=== PATIENT | female | born 1990 | race Caucasian/White ===

== ENCOUNTER 2019-07-02 08:53 | Outpatient (CLI) | payer OTHER, SELFPAY ==
--- NOTE | 2019-07-04 12:35 | WPDHOLTEREM ---
Holter/Event Monitor Holter/Event Monitor Date of procedure: 07/02/19 Procedure Type: 24 hour holter monitor Indications: Tachycardia Conclusion: 1. 24 hour holter monitor on 07/02/19. 2. Underlying rhythm is sinus rhythm. HR range 62-150 bpm; average HR 87 bpm. 3. No premature supraventricular complex. No supraventricular tachycardia. 4. No premature ventricular complex. No ventricular tachycardia. 5. No sinoatrial or atrioventricular blocks. No significant pauses greater than 2 seconds. 6. Patient reports symptoms of chest pressure/tightness and heart racing which demonstrate sinus rhythm, HR range 103-132 bpm.
== END 2019-07-02 08:54 | disposition home or self-care (01) ==
PROVIDERS: PCP Family Medicine; Visit Provider Advanced Practice Midwife
DX: R00.0 Tachycardia, unspecified (principal)
CPT/HCPCS: 93225; 93226

== ENCOUNTER 2019-07-17 10:23 | Outpatient (CLI) | payer OTHER, SELFPAY ==
[2019-07-17 11:25] LABS: Basophils Percent Auto 0.1 % (0.2-1.2); Eosinophils Absolute Auto 0.1 K/mm3 (0-0.3); Eosinophils Percent Auto 0.9 % (0-4.4); Hematocrit 33.7 % (37.0-47.0); Hemoglobin 11.3 g/dL (12.0-15.0); Immature Granulocyte Absolute 0.06 K/mm3 (0.00-0.031); Immature Granulocyte Percent A 0.6 % (0-0.5); Lymphocytes Absolute Auto 1.72 K/mm3 (0.9-3.2); Mean Corpuscular HGB Conc 33.5 g/dl (32-36); Mean Corpuscular Hemoglobin 29.7 pg (26-34); Mean Corpuscular Volume 88.7 fl (80-100); Mean Platelet Volume 10.6 fl (7.4-10.4); Monocytes Absolute Auto 0.7 K/mm3 (0.1-0.6); Monocytes Percent Auto 6.8 % (2.6-8.5); Neutrophils Absolute Auto 7.5 K/mm3 (1.3-6.7); Neutrophils Percent Auto 74.6 % (45.5-73.1); Platelet Count Result 152 k/mm3 (150-375); Red Cell Distribution Width 12.7 % (11.5-14.5); White Blood Count 10.1 K/mm3 (4.5-10.0)
[2019-07-17 11:30] VITALS: BP 115/79; PULSE 97
[2019-07-17 11:37] LABS: Alanine Aminotransferase 10 U/L (4-35); Albumin Level 3.5 g/dL (3.5-5.1); Alkaline Phosphatase 83 U/L (38-126); Aspartate Amino Transferase 19 U/L (14-36); Bilirubin,Total 0.2 mg/dL (0.2-1.3); Blood Urea Nitrogen 9 mg/dL (7-17); Calcium 8.6 mg/dL (8.4-10.2); Carbon Dioxide 25 mmol/L (22-30); Chloride 104 mmol/L (98-107); Creatinine Urine 24.3 mg/dL; Estimated Glomerular Filt Rate > 60; Glucose 77 mg/dL (65-105); Potassium 3.8 mmol/L (3.4-5.0); Sodium 136 mmol/L (137-145); Total Protein Urine Random 12 mg/dL; Uric Acid 2.9 mg/dL (2.5-7.5)
[2019-07-17 11:45] VITALS: BP 109/72; PULSE 88
[2019-07-17 12:00] VITALS: BP 105/69; PULSE 84
--- NOTE | 2019-07-17 12:05 | PC.NURSE ---
Bg Zavala CNM on unit. Lab results and BPs given. Informed of 1 variable deceleration noted, but other quintero reactive at 30 weeks. Uterine irritability noted, but no contractions seen on monitor. Uterine irritability noted on tracing. Pt states that she has low abdominal pressure that comes and goes. May D/C home. Follow up at regularly scheduled appt.
[2019-07-17 13:23] LABS: Appearance Urine Clear (Clear); Bilirubin Urine Negative (Negative); Blood Urine Negative (Negative); Color Urine Yellow (Yellow); Glucose Urine UA Negative (Negative); Ketones Urine Negative (Negative); Leukocyte Esterase Ur Negative LEU/UL (NEGATIVE); Nitrate Urine Negative (Negative); Protein Urine Negative (Negative); Specific Grav Ur 1.015 (1.001-1.035); Urobilinogen Urine 0.2 mg/dL (<2.0)
[2019-07-17 13:29] LABS: Add Urine Microscopic? YES; Bacteria Urine Trace /hpf; RBC Urine 0-2 /hpf (0-2); Squamous Epithelial Cell Urine Many /hpf (Few); WBC Urine 0-3 /hpf (0-3)
== END 2019-07-17 12:10 | disposition home or self-care (01) ==
LOC: ANHOBOP 10:37 → ANHOBPP 10:38
PROVIDERS: Advanced Practice Midwife; PCP Family Medicine; Visit Provider Obstetrics & Gynecology
DX: O13.9 Gestational [pregnancy-induced] hypertension without significant proteinuria, unspecified trimester (principal)
CPT/HCPCS: 36415; 59025; 80053; 81001; 82570; 84156; 84550; 85025; 87086; 99199

== ENCOUNTER 2019-08-22 19:51 | Observation (INO) | payer OTHER, SELFPAY ==
[2019-08-22 20:16] VITALS: BP 117/83; PULSE 87
[2019-08-22 20:30] VITALS: BP 114/81; PULSE 83
[2019-08-22 20:45] VITALS: BP 112/78; PULSE 94
--- NOTE | 2019-08-22 22:06 | OBADM ---
This patient, Fariha White, admitted to the OB room OB Post 116 for observation. Patient/family oriented to hospital policies and general routines including ID bracelet, bed and alarms, visiting hours, pain management, procedures, bathroom and other care routines, personal items, smoking policy, room service/diet, and visiting hours. Patient/Family are encouraged to report perceived risks to care and to ask questions if they do not understand what they are told or what they should do.
--- NOTE | 2019-08-26 07:39 | PM.OBTRLD ---
OB - Triage/Final Diagnosis Final Diagnosis (1) False labor: Code(s): O47.9 - False labor, unspecified Status: Acute
== END 2019-08-22 21:39 | disposition home or self-care (01) ==
PROVIDERS: Admitting Provider Obstetrics & Gynecology; PCP Family Medicine; Visit Provider Obstetrics & Gynecology
DX: O47.03 False labor before 37 completed weeks of gestation, third trimester (principal); Z3A.35 35 weeks gestation of pregnancy
CPT/HCPCS: G0378; G0379

== ENCOUNTER 2019-08-27 15:37 | Emergency (ER) | payer OTHER, SELFPAY ==
--- NOTE | ~2019-08-27 | XR_ITS ---
EXAMINATION: XR chest 1V INDICATION: Shortness of breath, chest pressure TECHNIQUE: PA view of the chest is obtained. COMPARISON: None available FINDINGS: There is minimal airspace opacity of the left lung base. No pleural effusion or pneumothora x is identified. The cardiomediastinal silhouette is normal. The visualized osseous structures are un remarkable. IMPRESSION: 1. Minimal left basilar airspace opacity, consistent with atelectasis versus pneumonia. Reviewed, dictated and finalized at location A. IMPRESSION: 1. Minimal left basilar airspace opacity, consistent with atelectasis versus pn eumonia.
--- NOTE | ~2019-08-27 | US_ITS ---
EXAMINATION: US venous doppler [facility] DATE: 08/27/2019 17:39 INDICATION: Bilateral lower limb cramping TECHNIQUE: Roth scale images without and with compression and Doppler images of the bilateral lower e xtremity veins were obtained. COMPARISON: None FINDINGS: The right common femoral vein, profunda femoral vein, femoral vein, popliteal vein, peroneal trunk, p osterior tibial veins, and greater saphenous vein are patent. The left common femoral vein, profunda femoral vein, femoral vein, popliteal vein, peroneal trunk, po sterior tibial veins, and greater saphenous vein are patent. IMPRESSION: 1. Patent bilateral lower extremity veins. No evidence of deep venous thrombosis. Reviewed, dictated and finalized at location A. IMPRESSION: 1. Patent bilateral lower extremity veins. No evidence of deep venous thrombosi s.
--- NOTE | 2019-08-27 15:46 | ECG_ITS ---
Measurements Intervals [place] Rate: 92 P: 112 RI: 146 QRS: 203 QRSD: 76 T: 140 QT: 350 QTc: 433 Interpretive Statements SINUS RHYTHM ARM LEADS REVERSED DELAYED PRECORDIAL R/S TRANSITION ATYPICAL ECG Electronically Signed On 08-27-2019 16:54:03 CDT by Trever Kennedy D.O.
[2019-08-27 15:49] VITALS: BP 145/93; PULSE 99; RESP 18; TEMP 36.6; O2SAT 100
[2019-08-27 16:08] LABS: Basophils Percent Auto 0.1 % (0.2-1.2); Eosinophils Absolute Auto 0.1 K/mm3 (0-0.3); Eosinophils Percent Auto 0.8 % (0-4.4); Hematocrit 35.5 % (37.0-47.0); Hemoglobin 11.9 g/dL (12.0-15.0); Immature Granulocyte Absolute 0.05 K/mm3 (0.00-0.031); Immature Granulocyte Percent A 0.5 % (0-0.5); Lymphocytes Absolute Auto 1.94 K/mm3 (0.9-3.2); Mean Corpuscular HGB Conc 33.5 g/dl (32-36); Mean Corpuscular Volume 89.4 fl (80-100); Mean Platelet Volume 11.6 fl (7.4-10.4); Monocytes Absolute Auto 0.8 K/mm3 (0.1-0.6); Monocytes Percent Auto 7.3 % (2.6-8.5); Neutrophils Absolute Auto 7.9 K/mm3 (1.3-6.7); Neutrophils Percent Auto 73.3 % (45.5-73.1); Platelet Count Result 151 k/mm3 (150-375); Red Blood Count 3.97 M/mm3 (4.2-5.4); Red Cell Distribution Width 13.3 % (11.5-14.5); White Blood Count 10.8 K/mm3 (4.5-10.0)
[2019-08-27 16:17] LABS: Partial Thromboplastin Time 23.6 SECONDS (22.3-36.8); Prothrombin Time 12.8 Seconds (11.1-14.7)
[2019-08-27 16:23] LABS: Blood Urea Nitrogen 6 mg/dL (7-17); Calcium 8.7 mg/dL (8.4-10.2); Carbon Dioxide 23 mmol/L (22-30); Chloride 104 mmol/L (98-107); Estimated CRCL calculation 175 ml/min; Estimated Glomerular Filt Rate > 60; Glucose 106 mg/dL (65-105); Sodium 134 mmol/L (137-145)
[2019-08-27 16:35] LABS: Troponin I < 0.012 ng/mL (0.000-0.034)
--- NOTE | 2019-08-27 16:54 | PC.NURSE ---
Pt states that she she is having contractions intermittently
--- NOTE | 2019-08-27 16:54 | PC.NURSE ---
Pt states that prior to ED arrival, patient was OBGYN office. Baby's HR was higher than normal, OBGYN sent patient in for evaluation for her and baby HR. Labor and delivery called for monitoring.
[2019-08-27 17:02] VITALS: BP 136/85; PULSE 85; RESP 14; O2SAT 100
--- NOTE | 2019-08-27 17:33 | ED.ARRPALP ---
HPI - Arrhythmia/Palpitations General Chief Complaint: Arrhythmia/Palpitations Stated Complaint: sob, chest pressure, racing heart, lightheadedness Time Seen by Provider: 08/27/19 17:01 History of Present Illness HPI narrative: Patient is a 20-year-old female who presents to the ER with multiple concerns. She reports intermittently over the last several months she has been having central chest pressure that will last for a few minutes. She is also having intermittent positional dizziness when she lays backwards. No spinning but feels like things are moving. This is accompanied by chronic sinus congestion from allergies for which she takes Flonase and an oral antihistamine daily. She denies any fever/sweats/chills. She is 36 weeks and will be induced that 38 weeks for her chronic hypertension. She reports she has been having some cramping in her legs recently but no swelling. She is been without any recent cough or fever. Patient also reports some shortness of breath, not necessarily exertional or positional, intermittent as well. Related Data Home Medications Medication Instructions Recorded Confirmed cetirizine 10 mg tablet 10 mg PO DAILY 05/29/19 labetalol 100 mg tablet 100 mg PO ONCE tablet 06/03/19 aspirin 08/27/19 zadcwrcwbw-pzwpjlmfquzca-qdtk cap 08/27/19 Allergies Allergy/AdvReac Type Severity Reaction Status Date / Time cefaclor Allergy Unknown Skin Verified 08/27/19 17:03 Reaction Review of Systems Review of Systems: All systems reviewed & are unremarkable except as noted in HPI and below Constitutional: Constitutional: Denies chills, Denies fever(s) and Denies weakness ENT: Reports dizziness, Reports nasal congestion and Denies sore throat Cardiovascular: Cardiovascular: Reports chest pain, Denies rapid heart rate and Denies radiating jaw, neck or arm pain Respiratory: Respiratory: Denies cough, Reports dyspnea and Denies wheezing Gastrointestinal: Gastrointestinal: Denies abdominal pain, Denies diarrhea, Denies nausea and Denies vomiting Musculoskeletal: Musculoskeletal: Denies back pain, Denies joint swelling and Reports muscle cramps PMFSH Past Medical History Medical History (Updated 08/27/19 @ 18:29 by Ethan Flores MD) Anxiety Deviated septum GERD (gastroesophageal reflux disease) Surgical History Surgical History (Updated 08/27/19 @ 17:41 by Ethan Flores MD) No pertinent past surgical history Family History Family History (Updated 08/25/17 @ 10:05 by DOCTOR UNKNOWN) Father Hypertension Other Family history of cardiovascular disease Family history of migraine headaches Social History Social History Smoking status: Never smoker Alcohol intake: current Exam Narrative: Exam Narrative: GENERAL: Well-appearing, well-nourished, and in no acute distress. HEAD: Normocephalic, atraumatic. ENT: Mucous membranes moist. TMs normal bilaterally. Ear canals free of cerumen. CHEST: Clear to auscultation. No respiratory distress. HEART: Regular rate and rhythm. Normal peripheral pulses. ABDOMEN: Soft, nontender, obviously gravid uterus with fundal height just below the rib cage. EXTREMITIES: Normal range of motion. No edema. SKIN: Warm, dry, no rash. NEURO: Alert and oriented x3. PSYCH: Mildly anxious with pressured speech. Course Course Emergency Course: Discussed with patient's OB Dr. Collado. Will start on azithromycin test for COVID. Patient aware of diagnosis and treatment plan. Vital Signs Vital signs: Vital Signs Temperature 97.9 F 08/27/19 15:49 Pulse Rate 99 08/27/19 15:49 Respiratory Rate 18 08/27/19 15:49 Blood Pressure 145/93 H 08/27/19 15:49 Pulse Oximetry 100 08/27/19 15:49 Temperature 97.9 F 08/27/19 15:49 Pulse Rate 85 08/27/19 17:02 Respiratory Rate 14 08/27/19 17:02 Blood Pressure 136/85 08/27/19 17:02 Pulse Oximetry 100 08/27/19 17:02 MDM - Arrhythmia/Palpitations Lab Da
--- NOTE | 2019-08-27 17:48 | PC.NURSE ---
Spoke with Dano isaacs CNM reagrding EFM tracing. Reactive NST, patient reports positive movement.
[2019-08-27 18:57] VITALS: BP 120/81; PULSE 88; RESP 19; O2SAT 100
[2019-08-27 19:05] LABS: Troponin I < 0.012 ng/mL (0.000-0.034)
[2019-08-28 19:19] LABS: SARS-CoV-2 RNA PCR Negative
== END 2019-08-27 18:58 | disposition home or self-care (01) ==
PROVIDERS: Emergency Provider Emergency Medicine; PCP Family Medicine
DX: O99.519 Diseases of the respiratory system complicating pregnancy, unspecified trimester (principal); J18.9 Pneumonia, unspecified organism; O99.343 Other mental disorders complicating pregnancy, third trimester; F41.9 Anxiety disorder, unspecified; O99.619 Diseases of the digestive system complicating pregnancy, unspecified trimester; K21.9 Gastro-esophageal reflux disease without esophagitis; Z20.828 Contact with and (suspected) exposure to other viral communicable diseases; Z3A.38 38 weeks gestation of pregnancy
CPT/HCPCS: 36415; 71045; 80048; 84484; 85025; 85610; 85730; 87635; 93005; 93970; 99284; C9803; U0003

== ENCOUNTER 2019-08-30 13:27 | Outpatient (RCR) | payer OTHER, SELFPAY ==
[2019-08-30 14:45] VITALS: BP 121/82; PULSE 81
== END 2019-09-09 07:28 | disposition home or self-care (01) ==
LOC: ANHOBOP 13:27
PROVIDERS: PCP Family Medicine; Visit Provider Obstetrics & Gynecology
DX: O10.913 Unspecified pre-existing hypertension complicating pregnancy, third trimester (principal); Z3A.37 37 weeks gestation of pregnancy
CPT/HCPCS: 59025

== ENCOUNTER 2019-09-06 05:03 | Inpatient (IN) | payer OTHER, SELFPAY ==
[2019-09-06] VITALS (170 sets, daily range): BP systolic 82–180; BP diastolic 20–105; PULSE 60–193; RESP 18; TEMP 36.7–37.7; O2SAT 95–100; BMI 28.6
--- NOTE | 2019-09-06 05:03 | LDADM ---
This patient, Fariha White, was admitted to Labor/Delivery/Recovery 103 on 09/06/19 at 05:03. Plans for labor, pain management and were discussed with patient. Patient/family oriented to hospital policies and general routines including ID bracelet, bed and alarms, visiting hours, pain management, procedures, bathroom and other care routines, personal items, smoking policy, room service/diet and guest tray routines, security routines, and visiting hours. Patient/Family are encouraged to report perceived risks to care and to ask questions if they do not understand what they are told or what they should do. See OBIX for further documentation.
[2019-09-06 05:43] LABS: Basophils Percent Auto 0.2 % (0.2-1.2); Eosinophils Absolute Auto 0.1 K/mm3 (0-0.3); Eosinophils Percent Auto 1.2 % (0-4.4); Hematocrit 35.8 % (37.0-47.0); Hemoglobin 12.1 g/dL (12.0-15.0); Immature Granulocyte Absolute 0.05 K/mm3 (0.00-0.031); Immature Granulocyte Percent A 0.6 % (0-0.5); Lymphocytes Absolute Auto 1.99 K/mm3 (0.9-3.2); Lymphocytes Percent Auto 22.1 % (18.3-44.2); Mean Corpuscular HGB Conc 33.8 g/dl (32-36); Mean Corpuscular Volume 88.6 fl (80-100); Mean Platelet Volume 11.1 fl (7.4-10.4); Monocytes Absolute Auto 0.6 K/mm3 (0.1-0.6); Neutrophils Absolute Auto 6.2 K/mm3 (1.3-6.7); Neutrophils Percent Auto 68.9 % (45.5-73.1); Platelet Count Result 161 k/mm3 (150-375); Red Blood Count 4.04 M/mm3 (4.2-5.4); Red Cell Distribution Width 13.2 % (11.5-14.5)
[2019-09-06] MEDS: OXYTOCIN 30 UNITS/NS 500 ML 30 UNITS/500 ML BAG IV CONT (05:54)
[2019-09-06 05:55] LABS: Uric Acid 4.1 mg/dL (2.5-7.5)
[2019-09-06] MEDS: LACTATED RINGERS 1,000 ML 125 ML IV CONT ×4 (05:55→18:24)
[2019-09-06 06:05] LABS: Alanine Aminotransferase 12 U/L (4-35); Albumin Level 3.4 g/dL (3.5-5.1); Alkaline Phosphatase 146 U/L (38-126); Aspartate Amino Transferase 25 U/L (14-36); Bilirubin,Total 0.4 mg/dL (0.2-1.3); Blood Urea Nitrogen 11 mg/dL (7-17); Calcium 8.8 mg/dL (8.4-10.2); Carbon Dioxide 21 mmol/L (22-30); Chloride 107 mmol/L (98-107); Estimated CRCL calculation 144 ml/min; Estimated Glomerular Filt Rate > 60; Glucose 95 mg/dL (65-105); Potassium 4.1 mmol/L (3.4-5.0); Sodium 133 mmol/L (137-145)
--- NOTE | 2019-09-06 06:07 | WPDANESEPP ---
Anes - Eval Pre Procedure Procedure: labor epidural Date/Time: 09/06/19 06:07 Surgeon: serge Pre Op Diagnosis: Induction Patient Data Age: 28 Gender: F Height: 1.65 m Weight: 78 kg Last Vital Signs Pulse 90 09/06/19 06:00 BP 130/82 09/06/19 06:00 Allergies Allergy/AdvReac Type Severity Reaction Status Date / Time cefaclor Allergy Unknown Skin Verified 09/06/19 05:48 Reaction Home Medications Medication Instructions Recorded Confirmed Type cetirizine 10 mg tablet 10 mg PO DAILY 05/29/19 09/06/19 History labetalol 100 mg tablet 100 mg PO ONCE tablet 06/03/19 09/06/19 History aspirin [Aspirin Childrens] 81 mg PO DAILY 08/27/19 09/06/19 History dpadhtxvng-ibgnlnfbkobik-vbos 1 cap PO DIRECTED PRN 08/27/19 08/30/19 History PNV cmb#95-ferrous fumarate-FA 1 tablet PO DAILY 08/30/19 08/30/19 History [] buspirone 5 mg PO BID 08/30/19 09/06/19 History fluticasone propionate [Flonase 1 spray INTRANASAL DAILY 08/30/19 09/06/19 History Allergy Relief] omeprazole magnesium [Prilosec OTC] 20 mg PO DAILY 08/30/19 09/06/19 History Laboratory Tests 09/06/19 09/06/19 09/06/19 05:33 05:33 05:33 WBC 9.0 K/mm3 K/mm3 (4.5-10.0) RBC 4.04 M/mm3 L M/mm3 (4.2-5.4) Hgb 12.1 g/dL g/dL (12.0-15.0) Hct 35.8 % L % (37.0-47.0) MCV 88.6 fl fl (80-100) MCH 30.0 pg pg (26-34) MCHC 33.8 g/dl g/dl (32-36) RDW 13.2 % % (11.5-14.5) Plt Count 161 k/mm3 k/mm3 (150-375) MPV 11.1 fl H fl (7.4-10.4) Immature Gran % (Auto) 0.6 % H % (0-0.5) Neut % (Auto) 68.9 % % (45.5-73.1) Lymph % (Auto) 22.1 % % (18.3-44.2) [place] % (Auto) 7.0 % % (2.6-8.5) Eos % (Auto) 1.2 % % (0-4.4) Baso % (Auto) 0.2 % % (0.2-1.2) Lymph # (Auto) 1.99 K/mm3 K/mm3 (0.9-3.2) [place] # (Auto) 0.6 K/mm3 K/mm3 (0.1-0.6) Eos # (Auto) 0.1 K/mm3 K/mm3 (0-0.3) Baso # (Auto) 0.0 K/mm3 K/mm3 (0.0-0.1) Abs Immat Gran (auto) 0.05 K/mm3 H K/mm3 (0.00-0.031) Absolute Neuts (auto) 6.2 K/mm3 K/mm3 (1.3-6.7) Absolute Nucleated RBC 0.0 K/mm3 K/mm3 (0.0-0.012) Nucleated RBC % 0.0 % % (0.0-0.2) % Immature Plt Fraction 8.0 % % (0.9-11.2) Sodium Potassium Chloride Carbon Dioxide BUN Creatinine Estim Creat Clear Calc Estimated GFR Glucose Uric Acid 4.1 mg/dL mg/dL (2.5-7.5) Calcium Total Bilirubin AST ALT Alkaline Phosphatase Total Protein Albumin RPR Pending 09/06/19 05:33 WBC RBC Hgb Hct MCV MCH MCHC RDW Plt Count MPV Immature Gran % (Auto) Neut % (Auto) Lymph % (Auto) [place] % (Auto) Eos % (Auto) Baso % (Auto) Lymph # (Auto) [place] # (Auto) Eos # (Auto) Baso # (Auto) Abs Immat Gran (auto) Absolute Neuts (auto) Absolute Nucleated RBC Nucleated RBC % % Immature Plt Fraction Sodium 133 mmol/L L mmol/L (137-145) Potassium 4.1 mmol/L mmol/L (3.4-5.0) Chloride 107 mmol/L mmol/L (98-107) Carbon Dioxide 21 mmol/L L mmol/L (22-30) BUN 11 mg/dL D mg/dL (7-17) Creatinine 0.50 mg/dL L mg/dL (0.7-1.0) Estim Creat Clear Calc 144 ml/min ml/min Estimated GFR > 60 (59 - ) Glucose 95 mg/dL mg/dL (65-105) Uric Acid Calcium 8.8 mg/dL mg/dL (8.4-10.2) Total Bilirubin 0.4 mg/dL mg/dL (0.2-1.3) AST 25 U/L U/L (14-36) ALT 12 U/L U/L (4-35) Alkaline Phosphatase 146 U/L H U/L (38-126) Total Protein 6.0 g/dL L g/dL (6.3-8.2)
--- NOTE | 2019-09-06 07:29 | WPDOBADMIT ---
Obstetrics - Admit Note Admission Note: record reviewed. No pertinent additions to the history and/or any subsequent changes in the physical findings that are not consistent with the expected course of the were found. MIL for chronic HTN, SVE 2/70/-2, AROM minimal amount of clear odorless fluid, anticipate vaginal delivery Additions to the history and/or subsequent changes in the physical findings follow. None.
[2019-09-06 12:37] LABS: Rapid Plasma Reagin Non-Reactive (NonReactive)
[2019-09-06] MEDS: miSOPROStol 200 MCG TABLET 800 MCG RECTAL (15:15)
--- NOTE | 2019-09-06 15:33 | P.PCNOB_ITS ---
OB - Delivery Note Procedure Delivery date: 09/06/19 Procedure: vaginal delivery Intrapartal events: None Induction method: AROM and per pitocin protocol Delivery monitor: external FHT and external uterine Route of delivery: Laceration description: Labial (right) Delivery repair: vicryl Specimen: Yes Estimated blood loss (mL): 835 Anesthesia type: Epidural Narrative: pt has hx of vaginal hemorrhage after last delivery, cytotec 800mcg given prophylactically, some seeping post repair, hemaderm and vaginal pack, vaginal pack x 2 hours, [place] Baby Date of : 09/06/19 Time of : 15:05 Weeks of gestation at delivery: 38 gender: Female Weight (pounds): 6 Weight (ounces): 14 presentation: vertex position: Right Occiput Anterior Placenta delivery description: Spontaneous cord vessel description: 3 Vessels and Clamped/Cut score one minute: 9 score five minutes: 9 Narrative: mother and baby in stable condition
[2019-09-06] MEDS: OXYTOCIN 30 UNITS/NS 500 ML 30 UNITS/500 ML BAG 125 UNITS IV CONT (15:38)
[2019-09-06] MEDS: WITCH HAZEL 40 PADS 1 PAD TOPICAL (17:07)
[2019-09-06] MEDS: IBUPROFEN 600 MG TABLET PO (17:07)
[2019-09-06] MEDS: BENZOCAINE 20% AER SPR (*SP) 56 GM CAN 1 SPRAY TOPICAL (17:08)
[2019-09-06] MEDS: busPIRone HCL 5 MG TABLET PO (17:09)
--- NOTE | 2019-09-06 18:12 | PM.OBPNLAB ---
Pain Control Date/time seen: 09/06/19 18:12 Assessment and Plan Comments: called back for continued slow bleeding from labial repair.4-0 vicryl used and 3 additional stitches placed in R labia. hemaderm placed and bleeding has stopped, small guaze placed on perineum and will leave for 4 hours, plan rpt lab work and continue IV hydration, 200 cc urine by catheter drained. Pt given fentanyl and vitals stable
[2019-09-06 18:27] LABS: Hematocrit 29.4 % (37.0-47.0); Hemoglobin 9.9 g/dL (12.0-15.0); Mean Corpuscular HGB Conc 33.7 g/dl (32-36); Mean Corpuscular Hemoglobin 29.8 pg (26-34); Mean Corpuscular Volume 88.6 fl (80-100); Mean Platelet Volume 11.6 fl (7.4-10.4); Platelet Count Result 126 k/mm3 (150-375); Red Blood Count 3.32 M/mm3 (4.2-5.4); Red Cell Distribution Width 13.2 % (11.5-14.5); White Blood Count 16.7 K/mm3 (4.5-10.0)
[2019-09-06] MEDS: CYCLOBENZAPRINE HCL 5 MG TABLET PO (18:54)
--- NOTE | 2019-09-06 18:54 | PM.OBPNLAB ---
Pain Control Date/time seen: 09/06/19 18:54 continued oozing from perineum, consulted Dr. Collado and will place vaginal packing overnight. Vaginal packing placed and bleeding minimal. VSS
[2019-09-06 18:55] LABS: INR 1.1; Prothrombin Time 13.4 Seconds (11.1-14.7)
[2019-09-06 18:56] LABS: Partial Thromboplastin Time 24.7 SECONDS (22.3-36.8)
--- NOTE | 2019-09-06 19:53 | OBPPTRN ---
Patient transferred to post room #291 via wheelchair. Support person present. Oriented to unit, room, information board, rooming in, admission packet and security measures. Patient verbalizes understanding. with patient.
[2019-09-06] MEDS: ACETAMINOPHEN 325 MG TABLET 650 MG PO (22:45)
[2019-09-07] MEDS: IBUPROFEN 600 MG TABLET PO ×3 (04:43→18:23)
[2019-09-07 05:20] LABS: Hematocrit 28.8 % (37.0-47.0); Hemoglobin 9.5 g/dL (12.0-15.0)
[2019-09-07 08:00] VITALS: BP 119/82; PULSE 86; RESP 18; TEMP 36.8; O2SAT 99
[2019-09-07] MEDS: MULTIVIT/MIN/PREN/FOL AC/IRON TABLET 1 TAB PO (08:03)
[2019-09-07] MEDS: busPIRone HCL 5 MG TABLET PO ×2 (08:03→18:23)
[2019-09-07] MEDS: POLYSACCHARIDE IRON COMPLEX 150 MG CAPSULE PO ×2 (08:03→18:22)
[2019-09-07] MEDS: LANOLIN (LANSINOH) 7.5 GM CREAM 1 APPLIC TOPICAL (08:03)
[2019-09-07] MEDS: DOCUSATE SODIUM 100 MG CAPSULE PO ×2 (08:03→18:22)
--- NOTE | 2019-09-07 08:20 | WPDANLDPN2 ---
Anes-Prog Note L&D Date/Time: 09/07/19 08:20 Comfortable throughout: labor and delivery Neuraxial method: epidural Epidural/Spinal procedure site: clean & non-tender Neuro status: Neuro function grossly intact. Cardiovascular status: normal Respiratory status: normal Mental status: baseline Post-Op hydration status: normal Vital Signs: Last Vital Signs Temp 98.5 F 09/06/19 19:53 Pulse 110 H 09/06/19 19:53 Resp 18 09/06/19 19:53 BP 141/88 H 09/06/19 19:53 Pulse Ox 99 09/06/19 19:53 I/O: Intake & Output 09/06/19 09/07/19 09/07/19 23:59 07:59 15:59 Output Total 200 Balance -200 Post-procedural complaints: none Patient feedback: Patient satisfied with anesthetic care.
--- NOTE | 2019-09-07 08:44 | P.PNOB_ITS ---
OB - PN: Subj Subjective Date/time seen: 09/07/19 08:44 Patient comments: no complaints baby status: doing well [place] feeding status: exclusively breast feeding OB - PN: Obj Data Labs CBC & Chem 7: 09/07/19 04:49 09/06/19 05:33 Labs: Laboratory Results - last 24 hr 09/06/19 09/06/19 09/06/19 05:33 18:20 18:35 WBC 16.7 H RBC 3.32 L Hgb 9.9 L Hct 29.4 L MCV 88.6 MCH 29.8 MCHC 33.7 RDW 13.2 Plt Count 126 L MPV 11.6 H PT 13.4 INR 1.1 APTT 24.7 RPR Non-reactive 09/07/19 04:49 WBC RBC Hgb 9.5 L Hct 28.8 L MCV MCH MCHC RDW Plt Count MPV PT INR APTT RPR OB - PN A/P Plan day: 1 Plan: routine care Time Spent With Patient Time: Total time spent is greater than 50% in coordination of care (as docume nted) at patient's floor/unit and/or counseling patient: Review of Systems Review of Systems: All systems reviewed & are unremarkable except as noted in HPI and below Exam Const: General: comfortable Resp: Effort & Inspection: normal respiratory effort Psych: Appearance: grossly normal Affect: normal affect Attitude: cooperative
[2019-09-07] MEDS: FLUTICASONE PROPIONATE 0.05% NA SPR 16 GM BTL (*BKC) 2 SPRAY NASAL (08:59)
[2019-09-07 10:05] VITALS: PULSE 100
[2019-09-07] MEDS: LABETALOL HCL 100 MG TABLET PO ×2 (10:05→22:23)
[2019-09-07 19:10] VITALS: BP 122/75; PULSE 90; RESP 16; TEMP 36.9; O2SAT 100
[2019-09-07 22:23] VITALS: PULSE 90
[2019-09-07] MEDS: ACETAMINOPHEN 325 MG TABLET 650 MG PO (22:23)
[2019-09-08] MEDS: IBUPROFEN 600 MG TABLET PO (05:28)
[2019-09-08 07:10] VITALS: BP 124/84; PULSE 84; RESP 18; TEMP 36.7; O2SAT 99
[2019-09-08 07:32] VITALS: PULSE 84
[2019-09-08] MEDS: DOCUSATE SODIUM 100 MG CAPSULE PO (07:32)
[2019-09-08] MEDS: POLYSACCHARIDE IRON COMPLEX 150 MG CAPSULE PO (07:32)
[2019-09-08] MEDS: MULTIVIT/MIN/PREN/FOL AC/IRON TABLET 1 TAB PO (07:32)
[2019-09-08] MEDS: LABETALOL HCL 100 MG TABLET PO (07:32)
[2019-09-08] MEDS: busPIRone HCL 5 MG TABLET PO (07:33)
--- NOTE | 2019-09-08 07:48 | P.PNOB_ITS ---
OB - PN: Subj Subjective Date/time seen: 09/08/19 07:48 Patient comments: no complaints baby status: doing well [place] feeding status: breast and bottle feeding OB - PN: Obj Data Labs CBC & Chem 7: 09/07/19 04:49 09/06/19 05:33 OB - PN A/P Plan day: 2 Plan: discharge home Time Spent With Patient Time: Total time spent is greater than 50% in coordination of care (as documented) at patient's floor/unit and/or counseling patient: Exam Const: General: comfortable Resp: Effort & Inspection: normal respiratory effort Psych: Appearance: grossly normal Affect: normal affect Attitude: cooperative
--- NOTE | 2019-09-08 12:45 | PC.NURSE ---
2755 Pt and her read mother and baby discharge papers; questions addressed; mother signed papers in understanding.
[2019-09-09 08:22] VITALS: BP 123/82; PULSE 102; RESP 14
--- NOTE | 2019-09-10 18:01 | PM.OBDSVD ---
OB - DS: Summary OB Procedures : None OB Procedures Intrapartum: Spontaneous Vag Delivery OB Procedures: : None Time Spent with Patient Time attestation: Total time spent providing and/or coordinating discharge services: DS: Data Data Completed and Pending Pending studies at discharge: Pending at discharge 09/06/19 15:12 Surgical [PTH] Routine Discharge Plan Discharge Attending physician on discharge: Aj Collado Consulting providers: Stephany Zavala Discharging Clinician: Stephany Zavala Patient Disposition: Home, Self-Care Activity: pelvic rest Diet: regular Discharge Instructions: Education: Mom and Baby Guide Given to: Mother Follow-Up: Call your delivering provider's office for an appointment to be seen in: 4 Weeks Mom and baby should come to the [facility] for the follow-up appointment. Appointment Date/Time: September 09, 2019 at 8:00 am What to expect at your follow-up visit: Blood Pressure Check Physical Assessment Call [phone] if you are unable to keep your appointment time. BREAST CARE: 1. Wear a snug supportive bra. 2. For engorgement discomfort: Breast Feeding: A. Apply warm moist washcloths B. Express milk as needed to relieve engorgement C. Wear loose clothing Bottle Feeding: A. May apply ice packs 3. For sore nipples: A. Identify correct latch-on B. Apply warm moist washcloths before and after nursing C. Air dry nipples after nursing D. May apply Lansinoh cream to nipples EPISIOTOMY/PERINEAL CARE: 1. Until bleeding stops, use your elan bottle after urinating 2. Change your pad frequently throughout the day 3. You may take sitz baths several times a day (fill your bathtub with warm water and soak for 20 minutes.) Do NOT bathe in the water 4. No tub baths until seen by your physician - You may shower ACTIVITY: 1. Rest as much as possible. 2. Do not exercise or lift anything heavier than your baby (such as laundry or other children.) 3. Avoid stairs or driving as much as possible. 4. Do not put anything into the vagina. No douching, tampons, or sexual activity until seen by physician. NOTIFY PHYSICIAN IF YOU HAVE ANY QUESTIONS OR IF ANY OF THE FOLLOWING SYMPTOMS OCCUR: 1. If your perineum becomes red, swollen, or more painful than what you have experienced in the hospital. 2. If your vaginal bleeding becomes foul smelling. 3. If your vaginal bleeding becomes more heavy than a period or if your bleeding changes from pink to bright red. However, you may pass an occasional walnut-sized clot once or twice for the first week . 4. If you experience a sharp, shooting pain in you calves. 5. If you discover a hard, reddened area on your breast or if you experience flu-like symptoms. 6. Temperature of 100.4 or higher DIET: 1. Eat regular, well-balanced meals. 2. Drink plenty of fluids daily. If , drink to thirst. Patient Instructions: Antibiotic Form Stand Alone Forms: General Discharge Information Follow-up/Referrals: Stephany Zavala CNM [Family Provider] - 4 Weeks Discharge Medications: New ibuprofen 600 mg Tablet 600 mg PO Q6H PRN (Reason: Cramping) Qty: 30 RF: 0 Continued labetalol 100 mg tablet 100 mg PO ONCE RF: 0 buspirone 5 mg Tablet 5 mg PO BID RF: 0 fluticasone propionate [Flonase Allergy Relief] 50 mcg/actuation [place],Suspension 1 spray INTRANASAL DAILY RF: 0 omeprazole magnesium [Prilosec OTC] 20 mg Tablet,Delayed Release (Dr/Ec) 20 mg PO DAILY RF: 0 PNV cmb#95-ferrous fumarate-FA [] 28 mg iron- 800 mcg Tablet 1 tablet PO DAILY RF: 0 zveasyrdst-byprxnahrhsks-ebuc 50-300-40 mg capsule 1 cap PO DIRECTED PRN (Reason: Migraine Headache) RF: 0 Discontinued cetirizine [Zyrtec] 10 mg tablet 10 mg PO DAILY RF: 0 aspirin [Aspirin
== END 2019-09-08 12:19 | disposition home or self-care (01) | DRG 807 ==
LOC: ANHLDR 05:07 → ANHOB2 20:31
PROVIDERS: Admitting Provider Obstetrics & Gynecology; Family Provider Advanced Practice Midwife; PCP Family Medicine; Visit Provider Obstetrics & Gynecology
DX: O10.92 Unspecified pre-existing hypertension complicating childbirth (principal); Z37.0 Single live birth; O70.1 Second degree perineal laceration during delivery; Z3A.38 38 weeks gestation of pregnancy
CPT/HCPCS: 36415; 80053; 84550; 85014; 85018; 85025; 85027; 85055; 85610; 85730; 86592; 86850; 86900; 86901; 88307; A9270; J2590; J2795; J3010; J7120

== ENCOUNTER 2019-09-09 08:09 | Outpatient (CLI) | payer OTHER, SELFPAY ==
[2019-09-09 09:14] LABS: Add Urine Microscopic? YES; Appearance Urine Cloudy (Clear); Bacteria Urine Trace /hpf; Bilirubin Urine Negative (Negative); Blood Urine 2+ (Negative); Color Urine Yellow (Yellow); Glucose Urine UA Negative (Negative); Ketones Urine Negative (Negative); Leukocyte Esterase Ur 3+ LEU/UL (Negative); Mucus Urine Rare /lpf; Nitrate Urine Negative (Negative); Protein Urine 1+ mg/dL (Negative); RBC Urine 51-75 /hpf (0-2); Specific Grav Ur 1.011 (1.001-1.035); Squamous Epithelial Cell Urine Rare /hpf (Few); Urobilinogen Urine Negative mg/dL (<2.0); WBC Urine >75 /hpf
== END 2019-09-09 08:10 | disposition home or self-care (01) ==
LOC: ANHOBOP 08:11
PROVIDERS: PCP Family Medicine; Visit Provider Obstetrics & Gynecology
DX: O26.899 Other specified pregnancy related conditions, unspecified trimester (principal); Z3A.00 Weeks of gestation of pregnancy not specified
CPT/HCPCS: 81001; 87077; 87086; 87088; 87186

== ENCOUNTER → 2020-04-03 10:31 | Outpatient (CLI) | payer OTHER, SELFPAY ==
[2020-04-03 22:59] LABS: SARS-CoV-2 RNA PCR Negative
== END ==
PROVIDERS: PCP Family Medicine; Visit Provider Family Medicine
DX: R09.89 Other specified symptoms and signs involving the circulatory and respiratory systems (principal); R51.9 Headache, unspecified; R68.83 Chills (without fever); Z20.822 Contact with and (suspected) exposure to COVID-19
CPT/HCPCS: C9803; U0003; U0005

== ENCOUNTER 2021-09-11 14:11 | Emergency (ER) | payer OTHER, SELFPAY ==
--- NOTE | ~2021-09-11 | CT_ITS ---
EXAMINATION: CT abdomen pelvis w con DATE: 09/11/2021 16:19 INDICATION: lower abdominal pain TECHNIQUE: Computed tomography (CT) of the abdomen and pelvis was performed with 100 mL Omnipaque-300 intravenous contrast. Automated exposure control and iterative reconstruction technique were employe d. The dose-length product was 324.63 mGy-cm. COMPARISON: None. FINDINGS: Lower thorax: Subcentimeter left lobe cyst or hemangioma. Liver: Normal. Biliary/Gallbladder: Gallbladder is normal. No bile duct dilation. Pancreas: No mass or duct dilation. Spleen: Normal. Adrenals:No mass. Kidneys: No mass, stone, or hydronephrosis. GI tract: No small or large bowel dilation. Appendix surgically absent. Mesentery/Peritoneum: No ascites, mass, or free air. Retroperitoneum: No mass. Pelvis: Pelvic organs are within normal limits. Soft Tissues: Soft tissues and body wall unremarkable. Bones: No acute osseous finding. IMPRESSION: No acute abdominopelvic process detected. Reviewed, dictated and finalized at location K.
--- NOTE | ~2021-09-11 | US_ITS ---
EXAMINATION: US pelvic complete w TV DATE: 09/11/2021 15:20 INDICATION: r/o torsion TECHNIQUE: Multiple transabdominal and endovaginal sonographic images of the pelvis were obtained. COMPARISON: None. FINDINGS: Uterus: 8.2 x 5.7 x 4.0 cm. Endometrial complex measures 0.6 cm. Right Ovary: 2.1 x 2.3 x 2.6 cm. Vascular flow is present. Left Ovary: 2.5 x 2.5 x 2.2 cm. Vascular flow is present. There is no free fluid in the pelvis. IMPRESSION: 1. Normal pelvic sonogram findings. Reviewed, dictated and finalized at location K.
[2021-09-11 14:14] VITALS: BP 158/97; PULSE 90; RESP 16; TEMP 36.6; O2SAT 100
--- NOTE | 2021-09-11 14:56 | ED.GENADULT ---
HPI - General Adult General Chief complaint: Abdominal Pain Stated complaint: LAP ON MENSES Time Seen by Provider: 09/11/21 14:50 History of Present Illness HPI narrative: 30-year-old female presenting to the emergency department for evaluation of lower abdominal pain. Patient states that the pain started last night. Patient denies any nausea vomiting diarrhea. Patient denies any radiation of the pain. Patient denies anything that changes the pain. Related Data Home Medications Medication Instructions Recorded Confirmed levocetirizine 5 mg tablet (Xyzal) 5 mg PO DAILY 04/05/21 04/05/21 montelukast 10 mg tablet 10 mg PO DAILY 04/05/21 04/05/21 Allergies Allergy/AdvReac Type Severity Reaction Status Date / Time prochlorperazine Allergy Severe Swelling Verified 06/04/21 15:47 [From Compazine] of Lip/Tongue/Throat azithromycin Allergy Unknown diarrhea\stomach Verified 06/04/21 15:47 pain cefaclor Allergy Unknown Skin Verified 06/04/21 15:47 Reaction prednisone AdvReac Unknown Unknown Verified 06/04/21 15:47 Review of Systems Review of Systems: CONSTITUTIONAL: Denies fever, chills, or sweats. EYES: Denies visual changes, redness, or discharge. ENT: Denies rhinorrhea, congestion, sore throat, or otalgia. CARDIOVASCULAR: Denies chest pain, palpitations, or edema. RESPIRATORY: Denies cough or dyspnea. GASTROINTESTINAL: See HPI GENITOURINARY: Denies dysuria or hematuria. SKIN: Denies rash or itching. MUSCULOSKELETAL: Denies back pain, joint pain, or myalgia. NEUROLOGIC: Denies headache, numbness, or weakness. [facility] Past Medical History Medical History Anxiety Deviated septum GERD (gastroesophageal reflux disease) Migraines hemorrhage Surgical History Surgical History No pertinent past surgical history Family History Family History Father Hypertension Grandparent Breast cancer Sibling Ovarian cyst Other Family history of cardiovascular disease Family history of migraine headaches Social History Social History Smoking status: Never smoker Alcohol intake: current Substance use: never Gender identity (if verbalized by the patient): Female Spiritual care concerns: No Exam Narrative: APPEARANCE: Well appearing, no pain, no distress, well-nourished. HEAD: normocephalic, atraumatic. EYES: PERRLA/EOMI, conjunctivae clear. NOSE: Normal no drainage THROAT: Pharynx clear, no exudate. NECK: Supple. No adenopathy, no masses. RESPIRATORY: Airway patent, respirations nonlabored. Clear to auscultation bilaterally, no rales, rhonchi, wheezing. CARDIOVASCULAR: Regular rate and rhythm without murmurs rubs or gallops. ABDOMINAL: Soft, nontender, normal bowel sounds, MUSCULOSKELETAL: Moves all extremities. Strength/ROM intact, No edema, No calf tenderness. NEURO: Alert. Cranial nerves II through XII intact. Grossly intact SKIN: Warm, dry. Normal Color Course Course Emergency Course: Ultrasound was ordered to rule out ovarian torsion. Ultrasound was negative for acute abnormality so CT scan was ordered. CT scan was also well-appearing. Patient did feel improved with treatment of her symptoms. Patient was educated on importance of close follow-up. Vital Signs Vital signs: Vital Signs Temperature 97.8 F 09/11/21 14:14 Pulse Rate 90 09/11/21 14:14 Respiratory Rate 16 09/11/21 14:14 Blood Pressure 158/97 H 09/11/21 14:14 Pulse Oximetry 100 09/11/21 14:14 Oxygen Delivery Room Air 09/11/21 14:14 Temperature 97.8 F 09/11/21 14:14 Pulse Rate 865 H 09/11/21 18:43 Respiratory Rate 18 09/11/21 18:43 Blood Pressure 138/95 H 09/11/21 18:43 Pulse Oximetry 100 09/11/21 18:43 Oxygen Delivery Room Air 09/11/21 1
--- NOTE | 2021-09-11 15:18 | PC.NURSE ---
Patient in ultrasound
[2021-09-11 15:45] LABS: Appearance Urine Clear (Clear); Basophils Percent Auto 0.2 % (0.2-1.2); Bilirubin Urine Negative (Negative); Blood Urine Negative (Negative); Color Urine Yellow (Yellow); Eosinophils Absolute Auto 0.1 K/mm3 (0-0.3); Eosinophils Percent Auto 0.7 % (0-4.4); Glucose Urine UA Negative (Negative); Hematocrit 39.3 % (37.0-47.0); Hemoglobin 13.2 g/dL (12.0-15.0); Immature Granulocyte Absolute 0.03 K/mm3 (0.00-0.031); Immature Granulocyte Percent A 0.3 % (0-0.5); Ketones Urine Negative (Negative); Leukocyte Esterase Ur Negative LEU/UL (Negative); Lymphocytes Absolute Auto 1.69 K/mm3 (0.9-3.2); Lymphocytes Percent Auto 19.5 % (18.3-44.2); Mean Corpuscular HGB Conc 33.6 g/dl (32-36); Mean Corpuscular Hemoglobin 28.8 pg (26-34); Mean Corpuscular Volume 85.6 fl (80-100); Mean Platelet Volume 11.1 fl (7.4-10.4); Monocytes Absolute Auto 0.4 K/mm3 (0.1-0.6); Monocytes Percent Auto 5.1 % (2.6-8.5); Neutrophils Absolute Auto 6.4 K/mm3 (1.3-6.7); Neutrophils Percent Auto 74.2 % (45.5-73.1); Nitrate Urine Negative (Negative); Platelet Count Result 166 k/mm3 (150-375); Protein Urine Negative (Negative); Red Blood Count 4.59 M/mm3 (4.2-5.4); Red Cell Distribution Width 12.3 % (11.5-14.5); Urobilinogen Urine 0.2 mg/dL (<2.0); White Blood Count 8.7 K/mm3 (4.5-10.0); pH Urine 5.5 (5.0-9.0)
[2021-09-11 15:53] LABS: Add Urine Microscopic? NO
[2021-09-11 15:55] LABS: Alanine Aminotransferase 10 U/L (6-35); Albumin Level 4.7 g/dL (3.5-5.1); Alkaline Phosphatase 60 U/L (38-126); Anion Gap 8 mmol/L (8-16); Aspartate Amino Transferase 20 U/L (14-36); Bilirubin,Total 0.5 mg/dL (0.2-1.3); Blood Urea Nitrogen 11 mg/dL (7-17); Calcium 9.2 mg/dL (8.4-10.2); Carbon Dioxide 27 mmol/L (22-30); Chloride 105 mmol/L (98-107); Estimated CRCL calculation 105 ml/min; Estimated Glomerular Filt Rate > 60; Glucose 106 mg/dL (65-110); Lactic Acid Reflex 0.7 mmol/L (0.7-2.0); Potassium 4.2 mmol/L (3.4-5.0); Sodium 140 mmol/L (137-145)
[2021-09-11 15:58] LABS: Pregnancy On Board Control Positive; Urine Pregnancy Test Negative
[2021-09-11] MEDS: METOCLOPRAMIDE HCL INJ 10 MG/2 ML VIAL IV PUSH (16:00)
[2021-09-11] MEDS: diphenhydrAMINE HCl INJ 50 MG/ML VIAL 25 MG IV PUSH (16:00)
[2021-09-11 18:43] VITALS: BP 138/95; PULSE 865; RESP 18; O2SAT 100
== END 2021-09-11 18:45 | disposition home or self-care (01) ==
PROVIDERS: Emergency Provider Emergency Medicine; PCP Family Medicine
DX: R10.30 Lower abdominal pain, unspecified (principal); K21.9 Gastro-esophageal reflux disease without esophagitis; F41.9 Anxiety disorder, unspecified
CPT/HCPCS: 36415; 74177; 76830; 76856; 80053; 81003; 81025; 83605; 85025; 96374; 96375; 99284; J0131; J1200; J2765; Q9967

== ENCOUNTER 2023-04-16 13:33 | Outpatient (CLI) | payer OTHER, SELFPAY ==
--- NOTE | ~2023-04-16 | MR_ITS ---
MRI of the brain Clinical History: Headache Technique: Axial and sagittal T1-weighted images were acquired. These were followed by axial T2-weigh catrachito, diffusion weighted, gradient, and FLAIR images. Findings: No significant signal abnormality seen in the brain parenchyma. No acute infarct, intracran ial hemorrhage, or mass lesion. Ventricles and subarachnoid spaces are unremarkable. Orbits are unremarkable. Paranasal sinuses and m astoid air cells are clear. Major intracranial flow voids are intact. Sagittal midline structures are intact. IMPRESSION: Unremarkable exam. Reviewed, dictated and finalized at location M. ORIZATION SPECIALIST IMPRESSION: Unremarkable exam.
== END 2023-04-16 13:34 | disposition home or self-care (01) ==
PROVIDERS: PCP Family Medicine; Visit Provider Psychiatry & Neurology Neurology
DX: Z87.828 Personal history of other (healed) physical injury and trauma (principal)
CPT/HCPCS: 70551

== ENCOUNTER 2023-04-23 18:44 | Emergency (ER) | payer OTHER, SELFPAY ==
--- NOTE | 2023-04-23 18:48 | ED.FEMALEGU ---
HPI - Female Genitourinary General Chief complaint: Urogenital-Female Stated complaint: UTI SYMPTOMS Time Seen by Provider: 04/23/23 18:45 Source: patient Mode of arrival: ambulatory Limitations: no limitations History of Present Illness HPI Narrative: Fariha is a 32-year-old female patient presenting to the clinic today with complaints possible UTI. She reports she has some left flank pain and left lower abdominal discomfort. Symptoms have been going on 2 days. Rates her pain currently a 5/10. Pain is worse when she is standing. States that 2 days ago she started having some diarrhea but thinks that was caused by something she ate. Diarrhea has resolved now. Just finished doxycycline and a Medrol Dosepak for a sinus infection. States she is not having any burning with urination however she is having some discomfort in her bladder area/left pelvic area with some vaginal discharge. Reports the vaginal discharge has been green/yellow without odor. Denies any concern for sexually transmitted infection, denies any changes in soaps, detergents, lotions, or lube. Related Data Home Medications Medication Instructions Recorded Confirmed ascorbate calcium (vitamin C) 500 500 mg PO DAILY 01/10/23 04/23/23 mg tablet fexofenadine 180 mg tablet 180 mg PO DAILY 03/14/23 04/23/23 (Carin Allergy) Allergies Allergy/AdvReac Type Severity Reaction Status Date / Time prochlorperazine Allergy Severe Swelling Verified 04/23/23 18:52 [From Compazine] of Lip/Tongue/Throat cefaclor Allergy Unknown Skin Verified 04/23/23 18:52 Reaction prednisone AdvReac Unknown Unknown Verified 04/23/23 18:52 Review of Systems Review of Systems: Pertinent positives per HPI. Patient denies any fever, chills, rash, headache, visual changes, dizziness, cough, shortness of breath, chest pain, palpitations, nausea, vomiting, constipation. [facility] Past Medical History Medical History Anxiety Deviated septum GERD (gastroesophageal reflux disease) Migraines hemorrhage Surgical History Surgical History No pertinent past surgical history Family History Family History Father Hypertension Grandparent Breast cancer Sibling Ovarian cyst Other Family history of cardiovascular disease Family history of migraine headaches Social History Social History Smoking status: Never smoker Alcohol intake: current Substance use: never Do You Feel Safe in your Home?: Yes Lack of Transportation: No Lack of Food: Never True Current Housing: I Have Housing Concerned About Future Housing: No Difficulty Paying Gas/Electric Bills: No Difficulty Paying for Meds: No Currently Unemployed: No Education: Bachelor's Degree Difficulty w/ Childcare or Family Care: No Gender identity (if verbalized by the patient): Female Spiritual care concerns: No Comments At the time of my signature, I reviewed and agree with the nursing past medical, surgical, social, and family history. There is no relevant family history pertinent to the patient complaint. Exam Narrative: General: Well-developed, well nourished, in no apparent distress. Head: Normocephalic, atraumatic. Cardio: Regular rate and rhythm, s1 and s2 normal, no murmur appreciated. Resp: Clear to auscultation bilaterally, no rhonchi, rales, wheezing or rubs. Abdomen: Soft, pliable, bowel sounds present in all quadrants, left lower abdominal/pelvis tender to palpation, no organomegly, left CVAT tenderness. : Deferred-patient declined exam Course Course Emergency Course: Portions of this record may have been created with voice recognition software. Level of Care: Express Care Visit Vital Signs Vital signs:
[2023-04-23 18:55] VITALS: BP 140/94; PULSE 55; RESP 16; TEMP 36.9; O2SAT 100
[2023-04-23 18:58] VITALS: BP 140/94; PULSE 55; RESP 16; TEMP 36.9; O2SAT 100
== END 2023-04-23 19:19 | disposition home or self-care (01) ==
PROVIDERS: Emergency Provider Nurse Practitioner Family; PCP Family Medicine
DX: R10.9 Unspecified abdominal pain (principal); N89.8 Other specified noninflammatory disorders of vagina; R51.9 Headache, unspecified; K21.9 Gastro-esophageal reflux disease without esophagitis
CPT/HCPCS: 81003; 99212; G0463

== ENCOUNTER 2023-05-16 15:44 | Outpatient (CLI) | payer OTHER, SELFPAY ==
--- NOTE | ~2023-05-16 | US_ITS ---
Thyroid ultrasound. Clinical History: Disorder of thyroid gland Findings: Real-time sonography of the thyroid gland was performed. The right lobe measures 5.0 x 1.3 x 1.1 cm. The left lobe measures 4.2 x 1.3 x 1.4 cm. The isthmus is 4 mm in AP diameter. Thyroid parenchyma is mildly heterogeneous, with possible 3 mm hypoechoic right thyroid lobe nodule. Impression: No significant abnormality seen.. Reviewed, dictated and finalized at [facility]. Impression: No significant abnormality seen..
== END 2023-05-16 15:45 ==
LOC: MICIMG 15:45
PROVIDERS: PCP Nurse Practitioner; Visit Provider Nurse Practitioner
DX: E07.9 Disorder of thyroid, unspecified (principal)
CPT/HCPCS: 76536

== ENCOUNTER 2023-06-16 10:40 | Outpatient (CLI) | payer OTHER, SELFPAY ==
--- NOTE | ~2023-06-16 | CT_ITS ---
EXAMINATION: CT facial bones w con DATE: 06/16/2023 11:08 INDICATION: Otitis media, unspecified, unspecified ear. Right ear pain. TECHNIQUE: Computed tomography (CT) of the facial bones and maxillofacial region was performed with 7 5 mL Omnipaque 350 intravenous contrast. Automated exposure control and iterative reconstruction tech WoraPayque were employed. The dose-length product was 298.01 mGy-cm. COMPARISON: None. FINDINGS: There is minimal mucosal thickening in right maxillary sinus. The tympanic cavities and mas toid air cells are clear. There are no pathologically enlarged lymph nodes. IMPRESSION: 1. No etiology for the patient's symptoms. Reviewed, dictated and finalized at location E.
[2023-06-16 10:58] LABS: Estimated Glomerular Filt Rate > 60
== END 2023-06-16 10:41 ==
LOC: MICIMG 10:41
PROVIDERS: PCP Nurse Practitioner; Visit Provider Nurse Practitioner
DX: H66.90 Otitis media, unspecified, unspecified ear (principal)
CPT/HCPCS: 70487; Q9967

== ENCOUNTER 2024-05-23 10:37 | Outpatient (CLI) | payer OTHER, SELFPAY ==
--- NOTE | ~2024-05-23 | US_ITS ---
EXAMINATION: US thyroid DATE: 05/23/2024 10:55 INDICATION: Nontoxic single thyroid nodule. TECHNIQUE: Multiple ultrasound images of the thyroid were obtained. COMPARISON: Ultrasound 05/16/23 FINDINGS: The right thyroid lobe measures 4.9 x 1.6 x 1.2 cm. The left thyroid lobe measures 4.4 x 1.1 x 1.5 c m. In the left thyroid lobe, there is a 5 mm solid, hypoechoic, wider than tall nodule with smooth m argin without echogenic foci (TI-RADS TR4). In the right thyroid lobe, there is a 4 mm nodule. In the right thyroid lobe, there is a 6 mm solid, hypoechoic, wider than tall nodule with ill-defined avery n without echogenic foci (TR4). In the right thyroid lobe, there is a 5 mm solid, hypoechoic, wider t barger tall nodule with smooth margin and macrocalcification (TR4). IMPRESSION: 1. Small thyroid nodules, likely not clinically significant. No follow-up is needed. Reviewed, dictated and finalized at location A. IMPRESSION: 1. Small thyroid nodules, likely not clinically significant. No follow-up is ne eded.
== END 2024-05-23 10:38 | disposition home or self-care (01) ==
LOC: MICIMG 10:38
PROVIDERS: PCP Family Medicine; Visit Provider Nurse Practitioner
DX: E04.2 Nontoxic multinodular goiter (principal)
CPT/HCPCS: 76536

== ENCOUNTER 2024-08-27 10:05 | Outpatient (CLI) | payer OTHER, SELFPAY | END 2024-08-27 10:06 | disposition home or self-care (01) | PROVIDERS: PCP Family Medicine; Visit Provider Nurse Practitioner | DX: M79.671 Pain in right foot (principal) | CPT/HCPCS: 73630 ==

== ENCOUNTER 2024-11-19 09:16 | Outpatient (CLI) | payer OTHER, SELFPAY ==
--- OUTSIDE RECORDS SUMMARY | 2024-05-30 05:30 | XMS_ITS ---
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 Name Role Phone Sandra Wilkerson DO Primary Care Provider UnavailSkyler Velazquez Unavailable [phone] REASON FOR VISIT Discuss Genesight result Social History Sex Assigned At : Social History Observation Description Sex Assigned At Female Encounters Encounter Location Date [facility] [address] [address] 05/30/2024 Skyler Espinoza Plan Of Treatment No Information Progress Notes * Alexandre ROBLEROKatharineOB:[birth year] (34 yo F)Acc No.[id number]:05/30/2024 Patient: Fariha Lobato Provider: Buddy ESPINOZA MD :1990 A ge:33 Y S ex:Female Date:05/30/2024 Address:[address] [place] [address] [place] Pcp:Sandra Wilkerson DO Subjective: * Chief Complaints: * D iscuss Genesight result * Active Problem List G43.709 Chronic migraine wit hout aura without status migrainosus, not intractable Onset Date:01/11/2021Modified On:03/20/2024W/U Status:confirmedClinical Status:active F90.2 ADHD (attention defi cit hyperactivity disorder), combined type Modified On:03/20/2024W/U Status:confirmed F41.1 AFSHAN (generalized anx iety disorder) Modified On:03/20/2024W/U Status:confirmed Billing Information: * Procedure Codes: * Electronic signature of Danita Espinoza MD on 11/19/2024 at 10:01 AM CDT Sign off status: Pending * Provider: Buddy ESPINOZA MD Date: 0 05/30/2024 Generated for Nicholas velasquez/Anna/Nora on: 0 11/19/2024 10:01 AM CDT
--- OUTSIDE RECORDS SUMMARY | 2024-10-30 12:30 | XMS_ITS ---
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 String Winding Machine Operator Name Role Phone Sandra Wilkerson Primary Care Provider UnavailMisty Ayala Unavailable [phone] Erick Saunders Unavailable Unavailable REASON FOR VISIT SCIT - Traditional Schedule Allergy Immunotherapy Medications Medication SIG (Take, Route, Frequency, Duration) Notes Start Date End Date Status SIT (TRADITIONAL) variable per schedule SC per schedule; Duration: to be determined Active Social History Sex Assigned At : Social History Observation Description Sex Assigned At Female Encounters Encounter Location Date Provider Diagnosis [address] [address] 10/30/2024 Misty Sweeney Allergic rhinitis du e to pollen J30.1 ; Other allergic rhinitis J30.89 and Other chronic allergic conjunctivitis H10.45 Assessments Encounter Date Diagnosis (ICD Code) Assessment Notes Treatment Notes Treatment Clinical Notes Section Notes 10/30/2024 Allergic rhinitis due to pollen (ICD-10 - J30.1) 10/30/2024 Other allergic rhinitis (ICD-10 - J30.89) 10/30/2024 Other chronic allergic conjunctivitis (ICD-10 - H10.45) Plan Of Treatment Medication Medication Name Sig Start Date Stop Date Notes SIT (TRADITIONAL) variable per schedule SC per schedule; Duration: to be determined Next Appt Details Follow Up: 1 Week, Reason: Provider Name:Scooby Plummer , 12/02/2024 01:40:00 PM, [address] [place], [address], Progress Notes * Mario ROBLEROOB:[birth year] (34 yo F)Acc No.[id number]:10/30/2024 SCIT-Aeroallergen Patient: Fariha DUNN Provider: Kianna Sweeney MD :1990 A ge:34 Y S ex:Female Date:10/30/2024 Address:[address] [place] [address], [id number] Pcp:Sandra Wilkerson Subjective: * Chief Complaints: * 1 . SCIT - Traditional Schedule Allergy Immunotherapy . * HPI: * Introduction: The patient is here for scheduled immunotherapy. Please see the attached specialty form regarding the specifics of the administration of these vaccines. As per our protocol, they must undergo a screening health questionnaire (medication changes, reaction(s) to last immunotherapy dose(s), current health status, ACT (if appropriate), self-injectable epinephrine on patient(?) and peak flow (if appropriate)). Also, the patient must wait in our office for 30 minutes after receiving the vaccine(s). Furthermore, every patient must have an epinephrine pen (self-injectable) with them at the time of administration--and carry if for the following 1.5 hours after they leave our office. The patient must also have taken their antihistamine the day of the injection, preferably 2 hours prior. The consent form for SCIT (subcutaneous immunotherapy) is on file. * Medical History: Objective: * Vitals: Assessment: * Assessment: 1. A llergic rhinitis due to pollen - J30.1 (Primary) 2 . O ther allergic rhinitis - J30.89 3 . O ther chronic allergic conjunctivitis - H10.45 ? Plan: * Treatment: * Procedure Codes: 9 5117 IMMUNOTHERAPY INJECTIONS * Follow Up: 1 Week * Billing Information: * Visit Code: * Procedure Codes: 54206 IMMUNOTHERAPY INJECTIONS. * Electronic signature of Sirisha Sweeney MD on 11/19/2024 at 10:01 AM CDT Sign off status: Pending * Provider: Kianna Sweeney MD Date: 0 10/30/2024 Generated for Nicholas velasquez/Anna/Nora on: 11/19/2024 10:01 AM CDT History and Physical Notes * HPI (History of Present Illness) Category Sub-Category Detail Notes Category Not es *Introduction The patient is here for scheduled immunotherapy. Please see the attached specialty form regarding the specifics of the administration of these vaccines. As per our protocol, they must undergo a screening health questionnaire (medication changes, reaction(s) to last immunotherapy dose(s), current health status, ACT (if appropriate), self-injectable epinephrine on patient(?) and peak flow (if appropriate)). Also, the patient must wait in our office for 30 minutes after receiving the vaccine(s). Furthermore, every patient must have an epinephrine pen (self-injectable) with them at the time of administration--and carry if for the following 1.5 hours after they leave our office. The patient must also have taken their antihistamine the day of the injection, preferably 2 hours prior. The consent form for SCIT (subcutaneous immunotherapy) is on file.
--- OUTSIDE RECORDS SUMMARY | 2024-11-19 10:01 | XMS_ITS | Clinical Summary ---
Author Organization [facility] Address [address] [place] [address] Phone Care Team Providers Care Returned Goods Inspector Name Role Phone Sandra Wilkerson DO Primary Care Provider [phone] Allergies Active Allergy Reactions Criticality Noted Date Comments Adela Swartz Nausea and Vomiting Low 04/13/2012 Prochlorperazine Edisylate Anaphylaxis High 03/05/19 20 Medications fluticasone propionate (FLONASE) 50 mcg/spray Eldridge, Suspension nasal inhaler inhale 1 spray by intranasal route every day in each nostril 6 Active labetalol (NORMODYNE) 100 mg tablet Take 100 mg by mouth daily. 9 Active vitamin-iron fumarate-folic acid 27 mg-0.8 mg Tablet Take by mouth. Activ e cetirizine (ZyrTEC) 10 mg tablet Take 10 mg by mouth daily. Active ondansetron (ZOFRAN ODT) 4 mg Tablet, Rapid Dissolve Take 4 mg by mouth every 6 hours as needed. 9 Active Active Problems No known active problems Encounters Date Type Department Care Team Description 10/16/2024 External Device Data [facility] ABSTRACTION Provider, Abstract 10/15/2024 External Device Data [facility] ABSTRACTION Provider, Abstract 10/01/2024 External Device Data [facility] ABSTRACTION Provider, Abstract 09/11/2024 External Device Data [facility] ABSTRACTION Provider, Abstract 09/10/2024 External Device Data [facility]STRACTION Provider, Abstract 08/20/2024 External Device Data [facility] ABSTRACTION Provider, Abstract from Last 3 Months Immunizations Immunization Administration Dates Next Due INFLUENZA VACCINE QUADRIVALENT 6 MOS UP IM 12/05 Family History Medical History Relation Name Comments No Known Problems Daughter Hypertension Father Pacemaker Maternal Grandfather Parkinson's Disease Maternal Grandfather Unknown Maternal Grandmother Healthy Mother Heart Attack Paternal Grandfather Unknown Paternal Grandmother Healthy Sister Relation Name Status Comments Daughter Alive Father Alive Maternal Grandfather Alive Maternal Grandmother Alive Mother Alive Paternal Grandfather Paternal Grandmother Sister Alive Social History Tobacco Use Types Packs/Day Years Used Date Smoking Tobacco: Never Smokeless Tobacco: Never Alcohol Use Standard Drinks/Week Comments No 0 (1 standard drink = 0.6 oz pur e alcohol) Comments No Sex and Gender Information Value Date Recorded Sex Assigned at Not on file Legal Sex Female 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 Gender Identity Not on file Sexual Orientation Not on file Last Filed Vital Signs Vital Sign Reading Time Taken Comments Blood Pressure 124/72 05/24/2024 8:24 AM CDT Pulse 80 03/05/2019 2:27 PM FLAKE MILLER HELPER Temperature 37.1 C (98.8 F) 03/05/2019 2:27 PM FLAKE MILLER HELPER Respiratory Rate 16 03/05/2019 2:27 PM FLAKE MILLER HELPER Oxygen Saturation 99% 03/05/2019 2:27 PM FLAKE MILLER HELPER Inhaled Oxygen Concentration - - Weight 59.9 kg (132 lb) 05/24/2024 8:24 AM CDT Height 165.1 cm (5' 5) 05/24/2024 8:24 AM CDT Body Mass Index 21.97 05/24/2024 8:24 AM CDT Plan of Treatment Health Maintenance Due Date Last Done Comments HEPATITIS B VACCINES (1 of 3 - 19+ 3-dose series) 2009 HPV/Cotest (21-29) 10/01/2011 HPV VACCINES (1 - 3-dose SCD M series) 2017 HPV/Cotest (30-65) 2020 CERVICAL CANCER SCREENING 04/29/2024 PAP SMEAR 04/29/2024 04/29/2021, 02/2015 (Previously completed) INFLUENZA VACCINE (#1) 2024 12/05/2018 COVID-19 Vaccine (3 - 2024-2 6 season) 2024 06/18/2020, 05/27/2020 DTAP/TDAP/TD VACCINES (2 - T d or Tdap) 07/19/2029 07/20/2019 Insurance [facility] OPT[employer] PPO [id number] [facility] OPEN ACCESS * Guarantor: [employer] Account Type Relation to Patient Date of Phone Billing Address Corporate Employer ATTN: [employer]LD[employer]GLER [address] [address] Care Teams Returned Goods Inspector Relationship Specialty Start Date End Date Sandra Wilkerson DO [address] [place] [id number] PCP - General Family Practice 05/30/22
--- OUTSIDE RECORDS SUMMARY | 2024-11-19 10:01 | XMS_ITS | Clinical Summary ---
Author Organization [facility] Address [address] [place] [address] Care Team Providers Care Consumer Analyst Name Role Phone Sandra Wilkerson DO Primary Care Provider [phone] Allergies Active Allergy Reactions Criticality Noted Date Comments Amoxicillin Hives 01/06/2018 Cefaclor Hives 01/06/2018 Prochlorperazine Swelling 06/11/2021 Medications sertraline (ZOLOFT) 50 MG tablet Take 50 mg by mouth daily. Active montelukast (SINGULAIR) 10 MG tablet Take 10 mg by mouth nightly at bedtime. Active ALPRAZolam (XANAX) 0.25 MG tablet Take 0.25 mg by mouth 2 (two) times daily as needed for Sleep. Active lisinopril (PRINIVIL) 5 MG tablet Take 5 mg by mouth daily. Active ondansetron (ZOFRAN-ODT) 4 MG disintegrating tablet Take 1 tablet (4 mg total) by mouth every 8 (eight) hours as needed for Nausea. 20 tablet 2 Active methocarbamol (ROBAXIN) 750 MG Tab Take 1 tablet (750 mg total) by mouth every 4 (four) hours. 30 tablet 4 Active Active Problems Problem Noted Date Diagnosed Date Acute appendicitis 01/07/2018 Appendicitis 01/07/2018 Immunizations Immunization Administration Dates Next Due PFIZER COVID-19 (ORIGINAL FO RMULATION, PURPLE CAP) mRNA, LNP-S, PF, 30 MCG/0.3 ML DOSE 06/18/2020,05/27/2020 Social History Tobacco Use Types Packs/Day Years Used Date Smoking Tobacco: Never Smokeless Tobacco: Never Tobacco Cessation:Counseling Given: Not Answered Alcohol Use Standard Drinks/Week Comments Yes 3.3 (1 standard drink = 0.6 oz p ure alcohol) Comments No Sex and Gender Information Value Date Recorded Sex Assigned at Not on file 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 Gender Identity Not on file Sexual Orientation Not on file Last Filed Vital Signs Vital Sign Reading Time Taken Comments Blood Pressure 115/73 07/11/2024 11:00 AM CDT Pulse 87 07/11/2024 11:00 AM CDT Temperature 36.7 C (98.1 F) 07/11/2024 8:08 AM CDT Respiratory Rate 13 07/11/2024 11:00 AM CDT Oxygen Saturation 100% 07/11/2024 11:00 AM CDT Inhaled Oxygen Concentration - - Weight 62.6 kg (138 lb) 07/11/2024 8:04 AM CDT Height 165.1 cm (5' 5) 07/11/2024 8:04 AM CDT Body Mass Index 22.96 07/11/2024 8:04 AM CDT Plan of Treatment Health Maintenance Due Date Last Done Comments Annual Physical 1993 Hepatitis C 2008 Hepatitis B Vaccines (1 of 3 - 19+ 3-dose series) 2009 HPV Vaccines (1 - 3-dose SCD M series) 2017 Cervical Cancer Screening Pa p with HPV Testing (Age 30 to 64) Every 5 Years 2020 COVID-19 Vaccine (3 - 2024-2 6 season) 2024 06/18/2020, 05/27/2020 Cervical Cancer Screening Pa p Smear (Age 30 to 64) Every 3 Years 06/14/2027 06/13/2024, 04/29/2021 Cervical Cancer Screening wi th HPV 06/14/2027 DTaP, Tdap and Td Vaccines ( 2 - Td or Tdap) 07/19/2029 07/20/2019 Meningococcal B Vaccine Aged Out No l onger eligible based on patient's age to complete this topic Meningococcal Vaccine Aged Out No elvia ingrid eligible based on patient's age to complete this topic Pneumococcal Vaccine: Pediatrics (0 to 5 Years) and At-Risk Patients (6 to 49 Years) Aged Out No longer eligible b ased on patient's age to complete this topic RSV Immunizations Under 20 Months Aged Out No longer eligible b ased on patient's age to complete this topic Insurance [employer] Care Teams Consumer Analyst Relationship Specialty Start Date End Date Sandra Wilkerson DO [address] [place] [address] PCP - General FAMILY PRACTICE 09/17/21
--- OUTSIDE RECORDS SUMMARY | 2024-11-19 10:01 | XMS_ITS | Clinical Summary ---
Author Organization [facility] Address [address] [place] [address] Care Team Providers Care Special Needs Tutor Name Role Phone Aidan Mendez MD Primary Care Provider [phone] [facility],non-owned Affiliates and Associated Physician Practices is amultiple site organization consisting of ambulatory clinics and hospital sitesin [place], [place], [place] and [place]. This disclosure is being madepursuant to the Care Everywhere program and may not contain all information available regarding this patient. Last updated 17.[facility] Allergies Active Allergy Reactions Criticality Noted Date Comments Cefaclor 09/01/2009 Prochlorperazine Anaphylaxis High 07/20/2019 Medications * Be aware that medications may not be up to date on this document. Alwaysverify current medications with the patient. topiramate (TOPAMAX) 25 MG tablet Take 25 mg by mouth 2 times daily. Active cetirizine (ZYRTEC) 10 MG tablet Take 10 mg by mouth daily. Active amitriptyline (ELAVIL) 50 MG tabletIndications :Abdominal pain, unspecified site Take 1 Tab by mouth once daily. 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 Gender Identity Not on file Sexual Orientation Not on file Last Filed Vital Signs Vital Sign Reading Time Taken Comments Blood Pressure 110/62 05/25/2010 3:41 PM CDT Pulse - - Temperature - - Respiratory Rate - - Oxygen Saturation - - Inhaled Oxygen Concentration - - Weight 57.9 kg (127 lb 10.3 oz) 05/25/2010 3:41 PM CDT Height 166.6 cm (5' 5.59) 05/25/2010 3:41 PM CD T Body Mass Index 20.86 05/25/2010 3:41 PM CDT Plan of Treatment Health Maintenance Due Date Last Done Comments HIV SCREENING 2005 HEPATITIS C SCREENING 09/25/2008 HEPATITIS B VACCINE (1 of 3 - 19+ 3-dose series) 2009 HPV VACCINE (1 - 3-dose SCDM series) 2017 DEPRESSION SCREENING 02/28/2024 COVID-19 VACCINE (1 - 2023-2 5 season) 2024 INFLUENZA VACCINE (#1) 2024 12/05/2018 DTAP/TDAP/TD VACCINES (2 - T d or Tdap) 07/19/2029 07/20/2019 ZOSTER VACCINE (1 of 2) 2040 HIB VACCINE Aged Out No longer eligi ble based on patient's age to complete this topic MENINGOCOCCAL (Group B) VACC INE SHARED DECISION-MAKING Aged Out No longer eligibl e based on patient's age to complete this topic MENINGOCOCCAL GROUPS A/C/Y/W VACCINE Aged Out No longer eligible b ased on patient's age to complete this topic PNEUMOCOCCAL VACCINE Aged Out No long er eligible based on patient's age to complete this topic Insurance [facility] Care Teams Special Needs Tutor Relationship Specialty Start Date End Date Aidan Mendez MD [address] [place] [id number] PCP - General 09/10/19
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
--- OUTSIDE RECORDS SUMMARY | 2024-11-19 10:01 | XMS_ITS | Patient Health Record ---
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 Austin Schulte Unavailable [phone] Latonia Jones Unavailable [phone] Allergies Allergen (clinical drug ingredient) Drug/Non Drug Allergy documented on EMR Reaction Allergy Type Onset Date Status COMPAZINE (uncoded) Throat Swelling Allergy Active cuclor (uncoded) hives Allergy Act kavon azithromycin Azithromycin GI Upset Drug Allergy A ctive predniSONE GI Upset Drug Allergy Active Reason For Referral Reason PA for Botox for G43 .709 Diagnosis 1 Chronic migraine wit hout aura, not intractable, without status migrainosus (G43.709) Referral Organization [facility] Referring Provider First Name Austin Referring Provider Last Name Franca Referring Provider Speciality Neurology Referred Organization [facility] Referred Provider Nara Schulte Referred Address [address] [place],[address], Referred Provider Specialty Neurology General Notes Elmira Lieberman 05:46:22 PM >CALLED SHARON BEASLEY [phone] SPOKE W/REP ALEC T (CALL REF# ALEC T 12/12/23 NAME/DATE) PT HAS MET THE DED AND OOP HAS MET $1863.83 OF $2000. SERVICE WILL BE COVERED W/$25 COPAY TO PT RESP. PROVIDER CAN BB. COMPLETED THE PRE SERVICE FORM PARTIALLY COMPLETED FROM [employer] AND FAXED INTO [employer] [phone]. CREDIT CARD CLERK STATED THAT PA IS NOT REQUIRED FOR MIGRAINE DX. SENT THE PRE SERVICE FORM. Referral Priority Routine Medications Medication SIG (Take, Route, Frequency, Duration) Notes Start Date End Date Status SIT (TRADITIONAL) variable per schedule SC per schedule; Duration: to be determined Active NORETHINDRONE 0.35 mg TAKE 1 TABLET BY MOUTH EVERY DAY Active Nurtec 75 MG 1 tablet Orally once daily; Duration: 30 days As needed for migraine Active DULoxetine HCl 60 MG 1 cap(s) orally onc e a day; Duration: 30 day(s) Not-Taking Excedrin Extra Strength 250-250-65 MG 2 tablets Orally Once a day Active Nortriptyline HCl 10 MG 1 capsule at bedtime Orally Once a day; Duration: 30 days 07/10/2024 Active AUVI-Q 0.3 mg as directed intramuscularly once; Duration: 30 day(s) Active Qulipta 60 MG 1 tablet Orally Once a day; Duration: 30 days 12/14/2023 Active Flonase Allergy Relief 50 MCG/ACT 1 spray in each nostril Nasally Once a day Active Carin Allergy 60 MG 1 tablet Orally Twice a day Active Azelastine HCl 137 MCG/SPRAY 2 sprays in each nostril Nasally Twice a day; Duration: 30 days 12/18/2023 Active EpiPen 2-[place] 0.3 MG/0.3ML as directed intramuscularly once; Duration: 30 days 12/19/2022 Active Propranolol HCl ER 60 MG Oral; Duration: 30 Days Active AMOXICILLIN-CLAVULAN ATE 875 mg-125 mg 1 tab(s) orally every 12 hours; Duration: 10 day(s) Not-Taking EMGALITY PREFILLED PEN 120 mg/mL INJECT 120 MG UNDER THE SKIN EVERY 30 (THIRTY) DAYS Not-Taking Fexofenadine HCl 180 MG 1 tablet Orally Once a day; Duration: 30 days 12/18/2023 Not-Taking Lisinopril 5 MG 1 tablet Orally Once a day Not-Taking Amoxicillin-Pot Clavulanate 875-125 MG 1 tab(s) orally every 12 hours; Duration: 10 day(s) Not-Taking Norethindrone 0.35 MG TAKE 1 TABLET BY MOUTH EVERY DAY Not-Taking Levocetirizine Dihydrochloride 5 MG 1 tab(s) orally once a day (in the evening) Not-Taking Montelukast Sodium 10 MG 1 tab(s) orally once a day; Duration: 30 day(s) Not-Taking Auvi-Q 0.3 MG/0.3ML as directed intramuscularly once; Duration: 30 day(s) Not-Taking Levocetirizine Dihydrochloride 5 MG 1 tab(s) orally once a day (in the evening); Duration: 90 days Not-Taking AIMOVIG SURECLICK AUTOINJECTOR 70 MG/ML DIRECTED SUBCUTANEOUSLY ONCE A MONTH *Please review for potential replacement for e-prescription and drug interaction check* Not-Taking Montelukast Sodium 10 MG 1 tab(s) orally once a day; Duration: 30 day(s) Not-Taking Immunizations Vaccine Route Administration Date Status Comme nts Covid 19 (Guaranteach) Unknown 06/18/2020 Administered Influenza Unknown 01/07/2020 Administered Portal Infor mation Covid 19 (Pfizer) Unknown 05/27/2020 Administered Social History Tobacco Use: Social History Observation Description Date Details (start date - stop date) Never Smoker NA - NA Sex Assigned At : Social History Observation Description Sex Assigned At Female Smoking Smart Form: Question Answer Notes Additional Findings:Tobacco Non-User Never used moist powdered tobacco Are you a: never smoker Problems Problem Type SNOMED Code ICD Code Onset Dates Problem Status W/U Status Risk Notes Problem Chronic migraine without aura, non-refractory (disorder) (347784530320148) Migraine without aura, not intractable, without status migrainosus (G43.009) Active confirmed Problem Migraine with aura (0655421) Migraine with aura, not intractable, without status migrainosus (G43.109) Active confirmed Problem Chronic migraine without aura, non-intractable (133557121943236) Chronic migraine without aura, not intractable, without status migrainosus (G43.709) Active confirmed Problem Migraine without aura, not refractory (disorder) (651204176) Migraine, unspecified, not intractable, without status migrainosus (G43.909) Active confirmed Problem Drug induced headache (623425638793845) Drug-induced headache, not elsewhere classified, not intractable (G44.40) Active confirmed Problem Chronic allergic conjunctivitis (46707039) Other chronic allergic conjunctivitis (H10.45) Active confirmed Problem Allergic rhinitis caused by pollen (disorder) (16988090) Allergic rhinitis due to pollen (J30.1) Active confirmed Problem Allergic rhinitis caused by animal hair and dander (095815146136116) Allergic rhinitis due to animal (cat) (dog) hair and dander (J30.81) Active confirmed Problem Allergic rhinitis (53589726) Other allergic rhinitis (J30.89) Active confirmed Problem Food allergy (286439411) Allergy to other foods (Z91.018) Active confirmed Problem Allergic rhinitis caused by pollen (disorder) (64986145) Allergic rhinitis due to pollen (J30.1) Active confirmed Problem Allergic rhinitis caused by animal hair and dander (242732774056930) Allergic rhinitis due to animal (cat) (dog) hair and dander (J30.81) Active confirmed Problem Allergic rhinitis (77264235) Other allergic rhinitis (J30.89) Active confirmed Problem Chronic allergic conjunctivitis (74102794) Other chronic allergic conjunctivitis (H10.45) Active confirmed Problem Chronic sinusitis (36406808) Chronic sinusitis, unspecified (J32.9) Active confirmed Problem Essential hypertension (76935656) Essential (primary) hypertension (I10) Active confirmed Problem Muscle pain (12173435) Myalgia, unspecified site (M79.10) Active confirmed Vital Signs Oximetry 99 % 07/09/2024 Blood pressure diastolic 91 mm Hg 07/09/2024 Height 66.5 in 07/09/2024 Blood pressure systolic 129 mm Hg 07/09/2024 Weight 138.2 lbs 07/09/2024 BMI 21.97 kg/m2 07/09/2024 Encounters Encounter Location Date Provider Diagnosis [facility] [id number] 10/31/2024 Misty Sweeney Allergic rhinitis du e to pollen J30.1 ; Other allergic rhinitis J30.89 and Other chronic allergic conjunctivitis H10.45 [facility] [id number] 10/02/2024 Misty Patel Allergic rhinitis du e to pollen J30.1 ; Other allergic rhinitis J30.89 and Other chronic allergic conjunctivitis H10.45 [facility] [place] [address] [facility] [address] 09/03/2024 Misty Patel Allergic rhinitis du e to pollen J30.1 ; Other allergic rhinitis J30.89 and Other chronic allergic conjunctivitis H10.45 [facility] [place] [address] [place] [address] 08/01/2024 Misty Patel Allergic rhinitis du e to pollen J30.1 ; Other allergic rhinitis J30.89 and Other chronic allergic conjunctivitis H10.45 [facility] [place] [address] [place] [address] 06/27/2024 Misty Patel Allergic rhinitis du e to pollen J30.1 ; Other allergic rhinitis J30.89 and Other chronic allergic conjunctivitis H10.45 [facility] [place] [address] [place] [address] 05/30/2024 Misty Patel Allergic rhinitis du e to pollen J30.1 ; Other allergic rhinitis J30.89 and Other chronic allergic conjunctivitis H10.45 [facility] [place] [address] [place] [address] 04/29/2024 Misty Patel Allergic rhinitis du e to pollen J30.1 ; Other allergic rhinitis J30.89 and Other chronic allergic conjunctivitis H10.45 [facility] [place] [address] [place] [address] 04/01/2024 Misty Patel Allergic rhinitis du e to pollen J30.1 ; Other allergic rhinitis J30.89 and Other chronic allergic conjunctivitis H10.45 [facility] [place] [address] [place] [address] 03/21/2024 Misty Patel Allergic rhinitis du e to pollen J30.1 ; Other allergic rhinitis J30.89 and Other chronic allergic conjunctivitis H10.45 [facility] [place] [address] [place] [address] 03/13/2024 Misty Patel Allergic rhinitis du e to pollen J30.1 ; Other allergic rhinitis J30.89 and Other chronic allergic conjunctivitis H10.45 [facility] [place] [address] [place] [address] 11/22/2023 Misty Sweeney Allergic rhinitis du e to pollen J30.1 ; Other allergic rhinitis J30.89 and Other chronic allergic conjunctivitis H10.45 [facility] [place] [address] [place] [address] 06/18/2024 Latonia Chronic migraine without aura, not intractable, without status migrainosus G43.709 ; Drug-induced headache, not elsewhere classified, not intractable G44.40 and Myalgia, unspecified site M79.10 [facility] [place] [address] [place] [address] 12/19/2023 Latonia Jones Chronic migraine without aura, not intractable, without status migrainosus G43.709 [facility] [place] [address] [place] [address] 12/18/2023 Misty Sweeney Allergic rhinitis du e to pollen J30.1 ; Chronic sinusitis, unspecified J32.9 ; Allergy to other foods Z91.018 ; Other allergic rhinitis J30.89 and Other chronic allergic conjunctivitis H10.45 [facility] [place] [address] [address] 04/09/2024 Latonia Jones Chronic migraine without aura, not intractable, without status migrainosus G43.709 ; Drug-induced headache, not elsewhere classified, not intractable G44.40 and Myalgia, unspecified site M79.10 [facility] [place] [address] [place] [address] 09/10/2024 Latonia Jones Chronic migraine without aura, not intractable, without status migrainosus G43.709 ; Drug-induced headache, not elsewhere classified, not intractable G44.40 and Myalgia, unspecified site M79.10 [facility] [place] [address] [place] [address] 07/09/2024 Latonia Jones Chronic migraine without aura, not intractable, without status migrainosus G43.709 ; Drug-induced headache, not elsewhere classified, not intractable G44.40 and Myalgia, unspecified site M79.10 [facility] [address] [place] [address] 03/14/2024 Latonia Jones Chronic migraine without aura, not intractable, without status migrainosus G43.709 ; Drug-induced headache, not elsewhere classified, not intractable G44.40 and Myalgia, unspecified site M79.[address] [address] 11/21/2023 Austin Schulte Chronic migraine without aura, not intractable, without status migrainosus G43.709 ; Drug-induced headache, not elsewhere classified, not intractable G44.40 and Myalgia, unspecified site M79.[address] [address] 07/10/2024 Latonia Jones [address] [address] 06/12/2024 Latonia Jones [address] [address] 04/22/2024 Misty Sweeney [address] [address] 03/13/2024 Misty Sweeney [address] [address] 12/14/2023 Latonia Jones [address] [address] 09/17/2024 Latonia Jones Assessments Encounter Date Diagnosis (ICD Code) Assessment Notes Treatment Notes Treatment Clinical Notes Section Notes 11/21/2023 Chronic migraine without aura, not intractable, without status migrainosus (ICD-10 - G43.709) -Abortive treatment plan: Continue Nurtec. Gave samples of Zavspret and Ubrelvy.-Preventiv e treatment plan: Send PA for Botox. Patient meets criteria for chronic migraine with > 15 headache days/month and > 8 migraine days per month, and has failed > 2 standard preventives and is therefore a good candidate for botulinum toxin. Also gave samples of Qulipta to try while awaiting Botox PA, if some response, would prefer to use the combination of Qulipta + Botox-Educated the patient on migraine lifestyle recommendations. I recommended the following measures: avoid known triggers of migraine, drink > 100 fluid ounces of non-caffeinated fluid daily, limit caffeine to 2 servings/day, sleep 7-8 hours/night and address any sleep concerns with us and report symptoms of snoring or fatigue; healthy management of stress; avoid treating headaches more than 2 days/week with abortive medication unless approved in treatment plan; can take Riboflavin 400 mg and Magnesium 500 mg daily as supplements; keep scheduled follow-up appointments 11/21/2023 Drug-induced headache, not elsewhere classified, not intractable (ICD-10 - G44.40) Educated patient regarding medication overuse headaches. Advised to avoid taking NSAIDs or acetaminophen > 15 days/month, triptans or DHE > 10 days/month, butalbital > 10 days/month to avoid rebound headaches. 11/22/2023 Allergic rhinitis due to pollen (ICD-10 - J30.1) 12/18/2023 Allergic rhinitis due to pollen (ICD-10 - J30.1) Fariha clearly suffers from atopic disease based upon history and our skin testing. Accordingly, we have introduced a new, aggressive medication regimen, discussed nasal washes and allergy-specific avoidance measures. She is tolerating SCIT without systemic symptoms, but recent swelling at site of injections. She was instructed to carry her epinephrine autoinjector for 2 hours after leaving the office. 12/18/2023 Chronic sinusitis, unspecified (ICD-10 - J32.9) Immunoglobulin levels within the normal range in 2021, low S. Pneumo and HIB titers. Verify at next visit if she has received boosters. Improvement in frequency of sinusitis 12/19/2023 Chronic migraine without aura, not intractable, without status migrainosus (ICD-10 - G43.709) 03/13/2024 Allergic rhinitis due to pollen (ICD-10 - J30.1) 03/14/2024 Chronic migraine without aura, not intractable, without status migrainosus (ICD-10 - G43.709) -Abortive treatment plan: Continue Nurtec. Continue Cefaly device. -Preventive treatment plan: Continue Botox. Continue Qulipta. *The patient's Qulipta was covered for free for 3 months, then her most recent copay was over $1,000. I gave her 20 days worth of samples to try for one more month. We will decide at her follow up appt if she will continue this medication.-Educat ed the patient on migraine lifestyle recommendations. I recommended the following measures: avoid known triggers of migraine, drink > 100 fluid ounces of non-caffeinated fluid daily, limit caffeine to 2 servings/day, sleep 7-8 hours/night and address any sleep concerns with us and report symptoms of snoring or fatigue; healthy management of stress; avoid treating headaches more than 2 days/week with abortive medication unless approved in treatment plan; can take Riboflavin 400 mg and Magnesium 500 mg daily as supplements; keep scheduled follow-up appointments 03/14/2024 Drug-induced headache, not elsewhere classified, not intractable (ICD-10 - G44.40) Limit use of OTC analgesics to 2 days per week or less. Educated patient regarding medication overuse headaches. Advised to avoid taking NSAIDs or acetaminophen > 15 days/month, triptans or DHE > 10 days/month, butalbital > 10 days/month to avoid rebound headaches. 03/21/2024 Allergic rhinitis due to pollen (ICD-10 - J30.1) 04/01/2024 Allergic rhinitis due to pollen (ICD-10 - J30.1) 04/09/2024 Chronic migraine without aura, not intractable, without status migrainosus (ICD-10 - G43.709) -Abortive treatment plan: Continue Nurtec. Continue Cefaly device. -Preventive treatment plan: Continue Botox. Continue Qulipta. Discussed recommendation for a low dose SSRI, such as escitalopram, to reduce anxiety that may be contributing to migraine headache. -Educated the patient on migraine lifestyle recommendations. I recommended the following measures: avoid known triggers of migraine, drink > 100 fluid ounces of non-caffeinated fluid daily, limit caffeine to 2 servings/day, sleep 7-8 hours/night and address any sleep concerns with us and report symptoms of snoring or fatigue; healthy management of stress; avoid treating headaches more than 2 days/week with abortive medication unless approved in treatment plan; can take Riboflavin 400 mg and Magnesium 500 mg daily as supplements; keep scheduled follow-up appointments 04/09/2024 Drug-induced headache, not elsewhere classified, not intractable (ICD-10 - G44.40) Discussed with patient that she needs to stop taking Excedrin any other OTC analgesics on a daily basis. Advised her to take Nurtec first as an abortive treatment. 04/29/2024 Allergic rhinitis due to pollen (ICD-10 - J30.1) 05/30/2024 Allergic rhinitis due to pollen (ICD-10 - J30.1) 06/18/2024 Chronic migraine without aura, not intractable, without status migrainosus (ICD-10 - G43.709) -Abortive treatment plan: Continue Nurtec. Continue Cefaly.-Preventive treatment plan: Continue Botox. Continue Qulipta.-Educated the patient on migraine lifestyle recommendations. I recommended the following measures: avoid known triggers of migraine, drink > 100 fluid ounces of non-caffeinated fluid daily, limit caffeine to 2 servings/day, sleep 7-8 hours/night and address any sleep concerns with us and report symptoms of snoring or fatigue; healthy management of stress; avoid treating headaches more than 2 days/week with abortive medication unless approved in treatment plan; can take Riboflavin 400 mg and Magnesium 500 mg daily as supplements; keep scheduled follow-up appointments 06/18/2024 Drug-induced headache, not elsewhere classified, not intractable (ICD-10 - G44.40) Again discussed reducing dose of OTC analgesics to two days per week or less. Educated patient regarding medication overuse headaches. Advised to avoid taking NSAIDs or acetaminophen > 15 days/month, triptans or DHE > 10 days/month, butalbital > 10 days/month to avoid rebound headaches. 07/09/2024 Chronic migraine without aura, not intractable, without status migrainosus (ICD-10 - G43.709) -Abortive treatment plan: Continue Nurtec. Continue Cefaly device. -Preventive treatment plan: Continue Botox. Continue Qulipta. Recommend adding nortriptyline 10 mg. -Educated the patient on migraine lifestyle recommendations. I recommended the following measures: avoid known triggers of migraine, drink > 100 fluid ounces of non-caffeinated fluid daily, limit caffeine to 2 servings/day, sleep 7-8 hours/night and address any sleep concerns with us and report symptoms of snoring or fatigue; healthy management of stress; avoid treating headaches more than 2 days/week with abortive medication unless approved in treatment plan; can take Riboflavin 400 mg and Magnesium 500 mg daily as supplements; keep scheduled follow-up appointments 07/09/2024 Drug-induced headache, not elsewhere classified, not intractable (ICD-10 - G44.40) Again discussed limiting Excedrin use to two days per week or less. 06/27/2024 Allergic rhinitis due to pollen (ICD-10 - J30.1) 08/01/2024 Allergic rhinitis due to pollen (ICD-10 - J30.1) 09/10/2024 Chronic migraine without aura, not intractable, without status migrainosus (ICD-10 - G43.709) -Abortive treatment plan: Start Nurtec. -Preventive treatment plan: Refill Qulipta and nortriptyline.-Edu cated the patient on migraine lifestyle recommendations. I recommended the following measures: avoid known triggers of migraine, drink > 100 fluid ounces of non-caffeinated fluid daily, limit caffeine to 2 servings/day, sleep 7-8 hours/night and address any sleep concerns with us and report symptoms of snoring or fatigue; healthy management of stress; avoid treating headaches more than 2 days/week with abortive medication unless approved in treatment plan; can take Riboflavin 400 mg and Magnesium 500 mg daily as supplements; keep scheduled follow-up appointments 09/10/2024 Drug-induced headache, not elsewhere classified, not intractable (ICD-10 - G44.40) 09/03/2024 Allergic rhinitis due to pollen (ICD-10 - J30.1) 10/02/2024 Allergic rhinitis due to pollen (ICD-10 - J30.1) 10/31/2024 Allergic rhinitis due to pollen (ICD-10 - J30.1) 10/31/2024 Other allergic rhinitis (ICD-10 - J30.89) 10/02/2024 Other allergic rhinitis (ICD-10 - J30.89) 09/03/2024 Other allergic rhinitis (ICD-10 - J30.89) 09/10/2024 Myalgia, unspecified site (ICD-10 - M79.10) 08/01/2024 Other allergic rhinitis (ICD-10 - J30.89) 06/27/2024 Other allergic rhinitis (ICD-10 - J30.89) 07/09/2024 Myalgia, unspecified site (ICD-10 - M79.10) Continue Physical Therapy. 06/18/2024 Myalgia, unspecified site (ICD-10 - M79.10) Symptoms have been moderately improved on botulinum toxin. 05/30/2024 Other allergic rhinitis (ICD-10 - J30.89) 04/29/2024 Other allergic rhinitis (ICD-10 - J30.89) 04/09/2024 Myalgia, unspecified site (ICD-10 - M79.10) Consider PT with myofascial work. Botox has alleviated some of these symptoms. 04/01/2024 Other allergic rhinitis (ICD-10 - J30.89) 03/21/2024 Other allergic rhinitis (ICD-10 - J30.89) 03/14/2024 Myalgia, unspecified site (ICD-10 - M79.10) Improved with Botox. 03/13/2024 Other allergic rhinitis (ICD-10 - J30.89) 12/18/2023 Allergy to other foods (ICD-10 - Z91.018) skin testing to salmon negative, given severe vomiting, recommend strict avoidance of salmon. She tolerates other finned fish 11/22/2023 Other allergic rhinitis (ICD-10 - J30.89) 11/21/2023 Myalgia, unspecified site (ICD-10 - M79.10) Should improve with Botox. Will add Botox in bilateral levator scapulae and bilateral masseter as well 11/22/2023 Other chronic allergic conjunctivitis (ICD-10 - H10.45) 12/18/2023 Other allergic rhinitis (ICD-10 - J30.89) 03/13/2024 Other chronic allergic conjunctivitis (ICD-10 - H10.45) 03/21/2024 Other chronic allergic conjunctivitis (ICD-10 - H10.45) 04/01/2024 Other chronic allergic conjunctivitis (ICD-10 - H10.45) 04/29/2024 Other chronic allergic conjunctivitis (ICD-10 - H10.45) 05/30/2024 Other chronic allergic conjunctivitis (ICD-10 - H10.45) 06/27/2024 Other chronic allergic conjunctivitis (ICD-10 - H10.45) 08/01/2024 Other chronic allergic conjunctivitis (ICD-10 - H10.45) 09/03/2024 Other chronic allergic conjunctivitis (ICD-10 - H10.45) 10/02/2024 Other chronic allergic conjunctivitis (ICD-10 - H10.45) 10/31/2024 Other chronic allergic conjunctivitis (ICD-10 - H10.45) 12/18/2023 Other chronic allergic conjunctivitis (ICD-10 - H10.45) 12/18/2023 Other Plan Of Treatment Next Appt Details Provider Name:Scooby YeungRenato Plummer , 12/02/2024 01:40:00 PM, [address] [place] [address], [phone], Insurance Providers Payer Name Payer Address Payer Phone Subscriber Number Group Number Insured Name Patient Relationship to Insured Coverage Start Date [facility]age End Date [facility] [address] [place] [address] [id number] Fariha White Self - patient is the insured Medical (General) History Medical History History ICD Code Migraine, unspecified, not intractable, without status migrainosus G43.909 Essential (primary) hypertension I10 Allergic rhinitis due to pollen J30.1 Anxiety GERD Ovarian cyst Surgical History Surgery Date(Month/Year) Cyst Removed 02/28/2000 Deviated Septum 05/31/2010 Appendectomy 01/16/2018
--- OUTSIDE RECORDS SUMMARY | 2024-11-19 10:02 | XMS_ITS | Clinical Summary ---
Author Organization [facility] Address [address] [place] [address] Phone Care Team Providers Care Pluck Trimmer Name Role Phone Aidan Mendez MD Primary Care Provider [phone] Allergies Active Allergy Reactions Criticality Noted Date Comments Amoxicillin Unknown 02/16/2019 Cefaclor Unknown 02/16/2019 Prochlorperazine Edisylate Anaphylaxis 02/17/20 19 Medications ondansetron (ZOFRAN ODT) 4 MG TABLET DISPERSIBLE Take 1 Tab by mouth every 8 hours as needed for Nausea - 1st line. 10 Tab 02/16/2019 Active Social History Tobacco Use Types Packs/Day Years Used Date Smoking Tobacco: Never Assessed Comments Unknown Sex and Gender Information Value Date Recorded Sex Assigned at Not on file Legal Sex Female 10:37 AM [employer]PORATE [employer] Gender Identity Not on file Sexual Orientation Not on file Last Filed Vital Signs Vital Sign Reading Time Taken Comments Blood Pressure 143/98 02/16/2019 3:00 PM [employer]ATE [employer]GY A[employer]LYST Pulse 93 02/16/2019 3:45 PM [employer]ATE STRATEGY ANALYST Temperature - - Respiratory Rate 15 02/16/2019 3:45 PM [employer]ATE STRATEGY ANALYST Oxygen Saturation 100% 02/16/2019 3:45 PM [employer]PORATE STRATEGY ANALYST Inhaled Oxygen Concentration - - Weight 63.5 kg (140 lb) 02/16/2019 2:17 PM [employer]ATE STRATEGY ANALYST Height 165.1 cm (5' 5) 02/16/2019 2:17 PM [employer]ATE STRATEGY ANALYST Body Mass Index 23.3 02/16/2019 2:17 PM CORPORATE STRATEGY ANALYST Plan of Treatment Not on file Insurance [facility] Care Teams Pluck Trimmer Relationship Specialty Start Date End Date Aidan Mendez MD [address] [place] [id number] PCP - General Family Medicine 02/16/19
--- OUTSIDE RECORDS SUMMARY | 2024-11-19 10:02 | XMS_ITS | Patient Health Record ---
Author Organization [facility] [employer] [facility] Address [address] [facility] [address] [place] [address] Care Team Providers Care Wine Maker Name Role Phone Sandra Wilkerson DO Primary Care Provider Skyler Su Unavailable [phone] Allergies Allergen (clinical drug ingredient) Drug/Non Drug Allergy documented on EMR Reaction Allergy Type Onset Date Status Compazine Unknown Drug Allergy Active cefaclor Cefaclor Unknown Drug Allergy Active Results Component Value Reference Range Notes UDT Reviewed date:03/20/2024 09:36:38 AM Interpretation: Performing Lab: Notes/Report: THC N 0 - 50 ng/ml Cocaine N 0 - 300 ng/ml Amphetamine N 0 - 1000 ng/ml Buprenorphine (BUP) N 0 - 10 ng/ml Secobarbital (Bar) N 0 - 300 ng/ml Oxazepam (BZO) N 0 - 300 ng/ml 7-pyqvrxwthm-2,8-irseqtsc-9,3-diphenylpyrrolidine (SAMAN P) N 0 - 300 ng/ml Methamphetamine (MET) N 0 - 1000 ng/ml Methylenedioxymethamphetamine (MDMA) N 0 - 500 ng/ml Morphine (MOP 300/EDX2517) N 0 - 300 ng/ml Methadone (MTD) N 0 - 300 ng/ml Phencyclidine (PCP) N 0 - 25 ng/ml Nortriptyline (TCA) N 0 - 1000 ng/ml Oxycodone N 0 - 300 ng/ml x N 0 - 300 ng/ml UDT Reviewed date:04/12/2024 12:11:05 PM Interpretation: Performing Lab: Notes/Report: THC N 0 - 50 ng/ml Cocaine N 0 - 300 ng/ml Amphetamine N 0 - 1000 ng/ml Buprenorphine (BUP) N 0 - 10 ng/ml Secobarbital (Bar) N 0 - 300 ng/ml Oxazepam (BZO) N 0 - 300 ng/ml 5-huzsyevyhr-2,8-oscadddf-4,3-diphenylpyrrolidine (SAMAN P) N 0 - 300 ng/ml Methamphetamine (MET) N 0 - 1000 ng/ml Methylenedioxymethamphetamine (MDMA) N 0 - 500 ng/ml Morphine (MOP 300/[id number]) N 0 - 300 ng/ml Methadone (MTD) N 0 - 300 ng/ml Phencyclidine (PCP) N 0 - 25 ng/ml Nortriptyline (TCA) N 0 - 1000 ng/ml Oxycodone N 0 - 300 ng/ml x N 0 - 300 ng/ml Reason For Referral No Information Medications Medication SIG (Take, Route, Frequency, Duration) Notes Start Date End Date Status predniSONE 50 MG Tablet Oral; Duration: 5 Days Not-Taking Azithromycin 250 MG Tablet Oral; Duration: 5 Days Not-Taking Amoxicillin 500 MG Tablet Oral; Duration : 10 Days Not-Taking Lisinopril 5 MG Tablet Oral; Duration: 9 0 Days Not-Taking Methocarbamol 750 MG Tablet Oral; Duration: 8 Days Not-T aking Nurtec 75 MG Tablet Disintegrating Oral; Duration: 30 Days Active Lisinopril 5 MG Tablet Oral; Duration: 9 0 Days Active Fluticasone Propionate 50 MCG/ACT Suspension Nasal; Duration: 90 Days Active EPINEPHrine 0.3 MG/0.3ML Solution Auto-injector Injection; Duration: 30 Days Active Qulipta 60 MG Tablet Oral; Duration: 30 Days Active Social History Tobacco Use: Social History Observation Description Date Details (start date - stop date) Never Smoker NA - NA Sex Assigned At : Social History Observation Description Sex Assigned At Female Social History Miscellaneous: Social Info Question Answer Notes Advance Care Planning Are you your own decision-maker Yes Do you have Power of Traveling Repair Accountant for Health or [facility]? No Safety issues: Are there any firearms in the house? No Social History Social Info Question Answer Notes Household: Marital Status: Number of Adults in household: 2 Number of Children in Household: 2 Level of Education: Finished College Drug/Alcohol: Social Info Question Answer Notes Drugs Have you used drugs other than those for medical reasons in the past 12 months? No AUDIT-C (Standard) Did you have a drink containing alcohol in the past year? 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 Problems Problem Type SNOMED Code ICD Code Onset Dates Problem Status W/U Status Risk Notes Problem Generalized anxiety disorder (24857671) AFSHAN (generalized anxiety disorder) (F41.1) Active confirmed Problem Attention deficit hyperactivity disorder (259896652) ADHD (attention deficit hyperactivity disorder), combined type (F90.2) Active confirmed Problem Chronic migraine without aura, non-intractable (179212331290548) Chronic migraine without aura without status migrainosus, not intractable (G43.709) 01/12/20 21 Active confirmed Vital Signs Heart Rate 70 /min 06/19/2024 Height-cm 165.1 cm 06/19/2024 Blood pressure diastolic 90 mm Hg 06/19/2024 Weight-kg 64.41 kg 06/19/2024 Height 65 in 06/19/2024 Blood pressure systolic 132 mm Hg 06/19/2024 Weight 142 lbs 06/19/2024 BMI 23.63 kg/m2 06/19/2024 Procedures Procedure Date Ordered Date Performed Result Body Sit e ADHD Testing 03/20/2024 N/A Encounters Encounter Location Date Provider Diagnosis [facility] [employer] [facility] [address] [facility] [address] [address] 03/20/2024 Skyler Abdi ADHD (attention defi cit hyperactivity disorder), combined type F90.2 ; Chronic migraine without aura without status migrainosus, not intractable G43.709 and AFSHAN (generalized anxiety disorder) F41.1 [facility] [employer] [facility] [address] [facility] [address] [address] 04/11/2024 Skylerjostin Abdi Lack of concentratio n R41.840 [employer] [facility] [address] [facility] [address] [facility] [address] [place] [address] 04/18/2024 Skyler Jin AFSHAN (generalized anx iety disorder) F41.1 and Chronic migraine without aura without status migrainosus, not intractable G43.709 [facility] [employer] [facility] [address] [facility] [address] [facility] [address] [place] [address] 05/16/2024 Skyler Jin Encounter for screen ing for depression Z13.31 ; Encounter for screening for cardiovascular disorders Z13.6 ; AFSHAN (generalized anxiety disorder) F41.1 and Chronic migraine without aura without status migrainosus, not intractable G43.709 [facility] [address] [place] [address] 06/19/2024 Skyler Jin Encounter for screen ing for depression Z13.31 ; Encounter for screening for cardiovascular disorders Z13.6 ; Dietary counseling and surveillance Z71.3 ; AFSHAN (generalized anxiety disorder) F41.1 ; Chronic migraine without aura without status migrainosus, not intractable G43.709 and MTHFR gene mutation Z15.89 [facility] [address] [place] [address] 04/25/2024 [facility], [facility] [address] [place] [address] 05/27/2024 Skyler [facility], [facility] [address] [place] [address] 05/30/2024 [facility], [facility] [address] [place] [address] 04/26/2024 [facility], [facility] [address] [facility] [address] [place] [address] 05/28/2024 [facility], [facility] [address] [facility] [address] [place] [address] 06/04/2024 Skyler [facility], [facility] [address] [place] [address] 07/08/2024 Skyler [facility], [facility] [address] [place] [address] 07/31/2024 Skyler [facility] Assessments Encounter Date Diagnosis (ICD Code) Assessment Notes Treatment Notes Treatment Clinical Notes Section Notes 04/11/2024 Lack of concentration (ICD-10 - R41.840) Based on the cognitive assessment results across the reports, here's a breakdown of the provided numbers and their significance: Cognitive Markers Outside Typical Range: 3 This indicates that three cognitive markers are performing outside the expected range, suggesting possible deficits in specific executive functions such as attention, response inhibition, or working memory.Planning Overall Score: 3 Planning is a ballesteros executive function, and a low score (e.g., 3) may indicate difficulty in organizing tasks, problem-solving, and executing multi-step actions efficiently.SART (Sustained Attention to Response Task) Omission Errors: 28 Omission errors reflect missed responses when a response was required. A high number (e.g., 28) suggests potential difficulties with sustained attention and vigilance, which are often associated with ADHD or other attentional impairments .Slowing After Errors: -3.32 This metric refers to how much response times slow after making an error. A negative slowing effect (-3.32) could suggest impulsivity or difficulty in self-monitoring and adjusting behavior after mistakes, a common issue in ADHD .ASRS Questionnaire: Part A: 3 - This is the threshold for ADHD risk in adults; a score of 3 is on the borderline and may suggest some ADHD-related difficulties but not necessarily meet the clinical threshold .Part B: 7 - Part B does not have a strict cutoff but is used to provide supporting evidence of ADHD-related behaviors. A score of 7 indicates a moderate presence of symptoms .Interpretation: The combination of low planning scores, high omission errors, and negative error slowing suggests executive dysfunction, particularly in attention and impulse control.While ASRS scores are not strongly indicative of ADHD, the cognitive test results suggest attentional challenges that may impact daily functioning.If ADHD is a concern, further clinical evaluation, including behavioral history and observations, is recommended to determine if symptoms align with ADHD or another condition affecting attention and executive function. 04/18/2024 AFSHAN (generalized anxiety disorder) (ICD-10 - F41.1) 04/18/2024 Chronic migraine without aura without status migrainosus, not intractable (ICD-10 - G43.709) 03/20/2024 ADHD (attention deficit hyperactivity disorder), combined type (ICD-10 - F90.2) 05/16/2024 Encounter for screening for depression (ICD-10 - Z13.31) 06/19/2024 Encounter for screening for depression (ICD-10 - Z13.31) 06/19/2024 Encounter for screening for cardiovascular disorders (ICD-10 - Z13.6) 03/20/2024 Chronic migraine without aura without status migrainosus, not intractable (ICD-10 - G43.709) 05/16/2024 Encounter for screening for cardiovascular disorders (ICD-10 - Z13.6) 05/16/2024 AFSHAN (generalized anxiety disorder) (ICD-10 - F41.1) 06/19/2024 Dietary counseling and surveillance (ICD-10 - Z71.3) 03/20/2024 AFSHAN (generalized anxiety disorder) (ICD-10 - F41.1) 06/19/2024 AFSHAN (generalized anxiety disorder) (ICD-10 - F41.1) 05/16/2024 Chronic migraine without aura without status migrainosus, not intractable (ICD-10 - G43.709) 06/19/2024 Chronic migraine without aura without status migrainosus, not intractable (ICD-10 - G43.709) 06/19/2024 MTHFR gene mutation (ICD-10 - Z15.89) Electronic Prior Authorization was requested for Deplin 7.5 7.5-90.314 MG Capsule. Provider can order medication once approval received. 03/20/2024 Other Learning About Depression Screening material was printed Anxiety Disorders (Generalized Anxiety, Social Anxiety, and Somatization) - Assessment: Patient reports fear of losing control with medications, particularly Xanax. Experiences tachycardia related to anxiety. - Plan: - Continue current therapy with [facility] in [place] - Discontinue regular propranolol 10mg - Start propranolol ER 60mg daily for tachycardia and anxiety management - Encourage gradual exposure to physical activity, starting with using stairs, to decouple fear of tachycardia and reduce anxiety related to physical symptoms Obsessive-Compulsi ve Disorder (OCD) tendencies - Assessment: Patient reports checking behaviors (e.g., garage door, alarm clock) - Plan: - Continue current therapy with [facility] in [place] - Monitor progress and response to treatment Attention Deficit Hyperactivity Disorder (ADHD) - Suspected - Assessment: Patient reports distractibility, difficulty with reading comprehension, and working with multiple mental windows open - Plan: - Schedule ADHD testing at our facility within the next two weeks - Follow up in three weeks to discuss test results and potential treatment options Vestibular Migraines - Assessment: Patient reports ongoing dizziness for 2-3 years - Plan: - Continue current migraine management - Monitor response to treatment and adjust as needed Irritable Bowel Syndrome (IBS) - History - Assessment: Patient reports history of IBS as a child, current stomach issues possibly related to medication - Plan: - Monitor gastrointestinal symptoms and consider further evaluation if symptoms worsen or persist Tachycardia - Assessment: Patient reports highest heart rate of 130 bpm with minimal activity - Plan: - Discontinue regular propranolol 10mg - Start propranolol ER 60mg daily to help manage tachycardia and anxiety Hypertension - Assessment: Patient reports fluctuating blood pressure, possibly anxiety-related - Plan: - Monitor blood pressure and adjust treatment as needed Health Anxiety (Hypochondriasis) - Assessment: Patient reports being hyper-vigilant about bodily sensations - Plan: - Continue current therapy with [facility] in [place] - Encourage patient to discuss health concerns with healthcare providers and seek reassurance when needed Medication management - Assessment: Patient has not taken prescribed Xanax due to fear of losing control - Plan: - Xanax 0.25mg twice daily as needed for anxiety - Encourage patient to discuss concerns with healthcare providers and consider alternative medications if needed Pharmacy: [facility] in [place], [address] 04/18/2024 Other ADHD Evaluation - Assessment: Cognitive markers outside typical range in three areas, including planning. Overall score was 3, with 28 omission errors (threshold is 17). Self-rating did not indicate ADHD. Issues in executive functioning, particularly organizing and problem-solving. Tests and self-rating scale not indicative of ADHD. Combination of low planning and high omission rate, possibly more anxiety-related. - Plan: - Recommend cognitive behavioral therapy for planning and executive functioning issues. Anxiety and Depressive Symptoms - Assessment: Propranolol helps with anxiety but heart rate is low at 50. Patient expressed concern about side effects of medications, particularly nausea and anxiety. - Plan: - Stop propranolol ER and switch to regular propranolol, one tablet every morning and one as needed for anxiety. - Start venlafaxine ER at 37.5 mg once a day in the morning for a week, then increase to 75 mg. - Send prescriptions to [facility] in [place]. - Recommend long-term therapy and learning coping skills for anxiety management. - Monitor the effect of venlafaxine on anxiety and depressive symptoms. Tension Headaches - Assessment: Possibly due to anxiety and stress. Antidepressants may affect headaches. - Plan: - Monitor the effect of venlafaxine on tension headaches. Nausea - Assessment: Occasional nausea, possibly due to taking Excedrin for headaches. - Plan: - Monitor the effect of venlafaxine on nausea, as it is easier on the stomach than duloxetine. Additional Considerations - Assessment: Hypervigilance while driving and dizziness may relate to anxiety. History of vestibular migraine could be relevant to dizziness and headache management. - Plan: - Monitor symptoms and address as needed in future appointments. 05/16/2024 Other Problem-Based Assessment and Plan Fariha White presents with ongoing anxiety and concerns about heart rate fluctuations, seeking alternative treatment options after experiencing side effects from venlafaxine. Anxiety Assessment: Patient reports persistent anxiety with fluctuating severity, describing periods of being okay alternating with week-long episodes of increased symptoms. Previously prescribed venlafaxine was discontinued after 3 days due to adverse effects including nausea, brain fog, and general malaise. Currently managing symptoms with as-needed propranolol 10 mg, which patient finds helpful but insufficient for complete symptom control. Patient expresses reluctance to try another anxiety medication due to concerns about side effects. Plan: - Continue propranolol 10 mg PO once daily in the morning and as needed for anxiety - Proceed with pharmacogenetic testing to guide future medication choices - Follow up in 2 months or sooner if pharmacogenetic results are available - Patient advised to schedule an earlier appointment if needed to discuss test results Tachycardia Assessment: Patient reports episodes of increased heart rate, particularly after meals, with rates in the 90s bpm compared to her typical 70s bpm. There is a concern for possible Postural Orthostatic Tachycardia Syndrome (POTS) raised by her chiropractor. Current propranolol dosage appears to be managing symptoms without causing clinically significant bradycardia, with patient reporting lowest observed heart rate of 56 bpm. Plan: - Continue propranolol 10 mg PO once daily and as needed, emphasizing not to take if heart rate is below 50 bpm - Recommend continuous heart rate monitoring using OnLive or Fitbit for objective data collection - Advise against frequent manual heart rate checks to prevent anxiety exacerbation - Educate on POTS and its potential relationship to her symptoms Medication side effects Assessment: Patient experienced significant side effects with venlafaxine, including nausea, brain fog, and general malaise, leading to discontinuation after 3 days of use. Previous extended-release propranolol 60 mg caused excessive lowering of heart rate to 50 bpm, necessitating dosage adjustment. Plan: - Discontinue venlafaxine due to intolerable side effects - Adjust propranolol dosage to 10 mg daily and as needed to manage symptoms while avoiding bradycardia - Proceed with pharmacogenetic testing to guide future medication choices and potentially identify medications to avoid based on genetic profile Disclaimer: This note has been transcribed using speech recognition software and serves as a reflection of the patient's visit. While efforts have been made to ensure accuracy, there may be errors, including financial quantitative analyst inaccuracies and misspellings of medication names. This document should not be considered a verbatim record, and any discrepancies should be verified with the provider. 06/19/2024 Sandro White presents with improved depression and anxiety, but reports ongoing vestibular migraines with associated dizziness triggering anxiety episodes. Anxiety Assessment: Patient reports overall improvement in anxiety symptoms, but continues to experience episodic anxiety triggered by vestibular migraines and associated dizziness. These episodes can be severe, as evidenced by a recent incident where the patient had difficulty falling asleep for over an hour due to anxiety following a dizzy spell. The anxiety appears to be primarily situational, linked to the patient's experiences of dizziness and migraine symptoms. 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 No specific depressive symptoms were discussed in detail during this visit. Plan: - Continue current management for depression - Monitor for changes in mood at follow-up appointment Migraines (including vestibular migraines) Assessment: Patient experiences vestibular migraines with associated dizziness, which trigger anxiety episodes. Current treatment includes Qulipta and Nurtec, though efficacy was not specifically discussed. The vestibular component appears to be a significant factor in the patient's overall symptom burden and quality of life. Plan: - Continue Qulipta 60 mg as prescribed - Continue Nurtec as prescribed - Consider sertraline 5 mg daily for migraine prophylaxis (see Anxiety plan) - Educate patient on the relationship between vestibular symptoms, migraines, and anxiety Hypertension Assessment: Patient's blood pressure is slightly elevated during this visit. Previously on propranolol, which was discontinued due to hair loss side effects. Oxyacetylene Torch Operator has recommended switching to lisinopril, but patient has not yet started the new medication. Plan: - Initiate lisinopril as recommended by manager leasing - Advise patient to start at the lowest possible dose and titrate slowly due to slow metabolizer status - Monitor blood pressure at follow-up visits Pharmacogenomic considerations Assessment: Gene site results indicate patient is a slow to intermediate metabolizer for several medications. 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 Patient also has reduced folic acid metabolism. Plan: - Educate patient on implications of slow metabolizer status: - Need for lower starting doses of medications - Longer duration before dose adjustments - Potential for increased sensitivity to medications, including pain medications - Consider the following medications if needed in the future, as they may be more suitable given the patient's metabolizer status: - Bupropion - Desvenlafaxine - Vilazodone - Fetzima - Initiate Deplin (L-methylfolate) 7.5 mg daily to address reduced folic acid metabolism Disclaimer: This note has been transcribed using speech recognition software and serves as a reflection of the patient's visit. While efforts have been made to ensure accuracy, there may be errors, including financial quantitative analyst inaccuracies and misspellings of medication names. This document should not be considered a verbatim record, and any discrepancies should be verified with the provider. Plan Of Treatment Pending Test Test Name Order Date ADHD Testing 03/20/2024 Future Test Test Name Order Date Cytochrome P450 2C9 Genotyping 5 Insurance Providers Payer Name Payer Address Payer Phone Subscriber Number Group Number Insured Name Patient Relationship to Insured Coverage Start Date Coverage End Date Jenni [id number] [facility] [place] [address] [id number] Fariha White Self - patient is the insured Medical (General) History Medical History History ICD Code Past Psychiatric History: Anxiety Disord er,Panic Disorder Surgical History Surgery Date(Month/Year) Deviated septum 2011 appendicitis 2018
--- NOTE | 2024-12-03 16:17 | P.SLEEP_ITS ---
Sleep Study - Home Unattended Date of Study: 11/19/24 Ordering Provider: Sandra Wilkerson DO Interpreting Provider: Samia Baeza DO Home Sleep Study Type: Watch PAT Height: 1.65 m Weight: 61.235 kg Body Mass Index: 22.4 Neck Circumference (inches): 12.5 Dumont: 5 Reason for Sleep Study Trouble staying asleep Sleep History The patient is a 34-year-old female that had a sleep study ordered by her primary care physician for evaluation of sleep apnea. The patient admits to having trouble maintaining sleep. She denies snoring loudly. She denies interruptions in breathing while asleep. She denies choking or gasping at night. She does have trouble breathing on her back. She does have morning headaches. She does have a dry or sore mouth / throat in the morning. She denies nocturnal heartburn. She denies nocturia. She denies having difficulty falling asleep. She denies having difficulty returning to sleep she wakes up throughout the night. He does use hypnotics or sedatives. She does feel an xious about sleep. She does feel tired or sleepy during the day. She does feel tired in the morning. She denies having the urge to fall asleep during the day. She denies feeling drowsy while driving. She denies sleep paralysis, cataplexy and hypnagogic/ hypnopompic hallucinations. She does clench or grind her teeth. She does kick or jerk her legs excessively. She denies having a restless f eeling in her legs. She goes to bed at 10:00 p.m. every night. It takes her 15 minutes to fall asleep. She gets 8 hours of sleep per night. Her sleep is a little more restorative on days. She denies taking any planned naps. He denies dream enactment behavior. She denies sleep walking. She consumes 1-2 cups of caffeinated beverage per day. She denies tobacco and alcohol use. She denies exercising on a regular basis. [facility] Past Medical History Medical History Migraines hemorrhage GERD (gastroesophageal reflux disease) Anxiety Deviated septum Surgical History Surgical History No pertinent past surgical history Family History Family History Father Hypertension Grandparent Breast cancer Sibling Ovarian cyst Other Family history of cardiovascular disease Family history of migraine headaches Social History Social History Social History: Caffeine-none Smoking status: Never smoker Alcohol intake: never Substance use: never Substance use type: does not use Do You Feel Safe in your Home?: Yes Lack of Transportation: No Lack of Food: Never True Current Housing: I Have Housing Concerned About Future Housing: No Difficulty Paying Gas/Electric Bills: No Difficulty Paying for Meds: No Currently Unemployed: No Education: Bachelor's Degree Difficulty w/ Childcare or Family Care: No Gender identity (if verbalized by the patient): Female Spiritual care concerns: No Medications Home Medications ?Medication ?Instructions ?Recorded ?Confirmed ?Type fexofenadine 180 mg tablet 180 mg PO DAILY 03/14/23 History (Carin Allergy) atogepant 60 mg tablet (Qulipta) mg PO DAILY 03/01/24 11/07/24 History epinephrine 0.3 mg/0.3 mL IM 05/14/24 11/07/24 History injection, auto-injector rimegepant 75 mg disintegrating mg PO ONCE PRN 5 11/07/24 History tablet (Nurtec ODT) nortriptyline 10 mg capsule mg PO 08/27/24 11/07/24 Hi story propranolol 10 mg tablet 10 mg PO Q12H PRN 08/27/24 0 11/07/24 History fluticasone propionate 50 See Rx Instructions .Route 0 10/04/24 11/07/24 Rx mcg/actuation nasal .COMPLEX #48 mL spray,suspension lisinopril 5 mg tablet mg PO 11/07/24 11/07/24 Hist ory Sleep Procedure The sleep study was completed using [email or web address] a technically adequate device with seven channels: peripheral arterial tone, actigraphy, body position, snore, respiratory movement, pulse oximetry, sleep staging, and heart rate. Prior to using the device, the patient received verbal and written instructions for its application and was provided with the help desk phone number for additional telephonic instruction with 24-hour availability of qualified personnel to answer questions. The study was scored using CMS guidelines. Sleep Architecture The total recording time is 8 hrs, 11 min. The total sleep time is 7 hrs, 34 min. Sleep latency is 23 minutes. REM latency is 88 minutes. The patient had 3 episodes of waking. Sleep architecture shows 25.8% deep sleep, 43.6% light sleep, and (as % Total Sleep Time) showed NREM (Light 43.6%; Deep 25.8%), and a 30.6% stage REM. The patient spent 100.0% of total sleep time in the supine position. Sleep efficiency was 92.46. Respiratory Analysis The overall AHI (pAHI 4%:) is 5.4. The overall AHI (pAHI 3%:) is 7.8. The central AHI is 1.8. The AHI was 4.3 in NREM and 15.7 in REM sleep. The AHI was 7.8 in Supine and N/A in Non-supine sleep. Percent of Juan J Gerard respirations is 0.0. Oximetry Data The oxygen desaturation index (MONSERRAT 4%:) is 1.1. The mean saturation is 95%, and the lowest saturation is 90%. Time spent with saturation < 88% is 0.0 minutes. Snoring Profile Snoring average intensity is 40 dB. The patient snored above 45 decibels for 8.0 minutes, 1.8% of sleep time. Cardiac Profile The average pulse rate is 75 beats per minutes. The lowest pulse rate is 61 bpm. The highest pulse rate reported is 111 bpm. Atrial fibrillation was not detected. Premature beats occur <0.1 per minute. Assessment and Plan Assessment and Plan (1) CHIKIS (obstructive sleep apnea): Code(s): G47.33 - Obstructive sleep apnea (adult) (pediatric) Status: Acute Assessment and Plan: The patient had an overall AHI of 5.4 with desaturation down to 90%. This is consistent with mild sleep apnea. Due to the patient's hypertension, she qualifies for treatment. I recommend that the patient be prescribed AutoPAP 5-15 cm H2O, CPAP mask/filters/tubing and heated humidity. A mandibular advancement device is also an acceptable treatment option. This should be used with all episodes of sleep.? Compliance should be reviewed within 31-90 days of starting therapy for usage greater than 4 hours per night greater than 70% of the nights. The patient should be asked about symptoms such as?excessive daytime sleepiness, quality of sleep, decreased nocturia, increased?mental functioning such as memory, mood, and concentration. Data The data obtained during this sleep study is adequate for interpretation. Certification This sleep study has been reviewed by a board certified sleep medicine physician.
[2024-12-04 12:25] VITALS: BMI 22.4
== END 2024-11-20 11:33 | disposition home or self-care (01) ==
LOC: ANHCSM 09:24
PROVIDERS: PCP Family Medicine; Visit Provider Family Medicine
DX: G47.33 Obstructive sleep apnea (adult) (pediatric) (principal); G47.10 Hypersomnia, unspecified; F39 Unspecified mood [affective] disorder
CPT/HCPCS: 95800